=== PATIENT | female | born 1980 | race African-American/Black ===

== ENCOUNTER 2020-09-27 21:13 | Emergency (ER) | payer OTHER, SELFPAY ==
[2020-09-27 21:24] VITALS: BP 154/100; BP 164/84; PULSE 109; PULSE 114; RESP 18; TEMP 39.2; O2SAT 96; O2SAT 98; BMI 27.4
--- NOTE | 2020-09-27 21:37 | ECG_ITS ---
Test Reason : SOB/CP Blood Pressure : / mmHG Vent. Rate : 101 BPM Atrial Rate : 101 BPM P-R Int : 148 ms QRS Dur : 074 ms QT Int : 320 ms P-R-T Axes : 070 049 054 degrees QTc Int : 414 ms Sinus tachycardia Otherwise normal ECG No previous ECGs available Referred By: Marce Gamez Electronically Signed By:SAV MURO
--- NOTE | 2020-09-27 21:38 | XR_ITS ---
EXAMINATION: XR CHEST CLINICAL INFORMATION: Cough, shortness of breath. COMPARISON: None TECHNIQUE: Frontal view of the chest was obtained. FINDINGS: The lungs are clear. The cardiomediastinal silhouette is normal in size. There is no pleural effusion or pneumothorax. No acute osseous abnormality. XR/XR chest 1V IMPRESSION: No acute cardiopulmonary findings.
--- NOTE | 2020-09-27 21:40 | ED_ITS ---
HPI - URI/Sore Throat General Chief Complaint: Upper Respiratory Symptoms Stated Complaint: FLU SYMPTOMS Time Seen by Provider: 09/27/20 21:21 Source: patient Mode of arrival: ambulatory History of Present Illness HPI Narrative: 40-year-old female with a past medical history of Graves disease presenting to the ED complaining dry cough, worsening SOB, chest discomfort, chills, generalized fatigue/weakness, diarrhea, and nausea x a few days. Reports multiple COVID-19 exposures from family members. States mother was just discharged from the hospital with oxygen. Denies recent travel, LE edema, history of blood clots, abdominal pain, vomiting MD elicited complaint: fever and cough Related Data Previous Rx's Medication Instructions Recorded azithromycin See Rx Instructions .ROUTE 09/28/20 .COMPLEX #6 tab benzonatate [Tessalon Perles] 100 mg PO TID PRN #10 cap 09/28/20 Allergies Allergy/AdvReac Type Severity Reaction Status Date / Time iodine [IODINE] Allergy Unknown DIFFICULTY Verified 09/27/20 21:21 BREATHING Review of Systems Review of Systems: Constitutional: No Weight loss, + Fever, + Chills, + Fati elizabeth, + Malaise ENT/Mouth: No Nasal Congestion, No Sinus Pain, No Hoarseness, No sore throat, No Rhinorrhea Eyes: No Eye Pain, No Swelling, No Redness, No Foreign Body, No Discharge, No Vision Changes Cardiovascular: + Chest Pain, + SOB, No Dyspnea on Exertion, + Orthopnea, No Edema, No Palpitations Respiratory: + Cough, No Sputum, No Wheezing Gastrointestinal: + Nausea, No Vomiting, + Diarrhea, No Constipation, No Abdominal pain Genitourinary: No irregular bleeding, No Dysuria, No Urinary Frequency, No Hematuria Musculoskeletal: No joint pain, + Myalgias, No Joint Swelling Skin: No Skin Lesions, No rash Yes all other systems are reviewed and are negative [facility] Past Medical History Attestation statement: The following information was validated with the patient. Medical History (Updated 09/28/20 @ 00:06 by JUAN M Hercules) Graves disease Social History Social History Advance Directives: No Advance Directives Information Provided: No Physical Exam Vital Signs: Vital Signs: Last Vital Signs Temp 102.6 F H 09/27/20 21:24 Pulse 108 H 09/27/20 21:53 Resp 18 09/27/20 21:24 BP 154/100 H 09/27/20 21:24 Pulse Ox 96 09/27/20 21:24 Body Mass Index 27.4 Const: General: cooperative, alert, awake and anxious Orientation/consciousness: patient oriented x3 Limitations: no limitations HENMT: Head: Yes normal to inspection Ears: hearing grossly normal bilatera lly General nose exam: Normal external nose present Face and sinus: Yes normal facial exam Eyes: General: appearance normal, both eyes and all related structures EOM: EOMs intact bilaterally Neck: Neck: Yes normal visual inspection and Yes no meningeal signs Resp: Effort & Inspection: normal respiratory effort Auscultation: clear to auscultation bilaterally, no rales, no rhonchi and no wheezes Cardio: Rate: regular rate and tachycardic Heart sounds: S1 normal heart sound present and S2 normal heart sound present GI: Inspection: Yes normal to inspection Palpation (GI): Soft to palpation, nontender, no guarding and not rigid Skin: Rashes: no rashes Wounds: no wounds Neuro: General: patient oriented x3 and no meningeal signs Gait exam (Neuro): Normal gait present Extrem: Other: No LE edema General: Yes normal to inspection Course Course Course Narrative: * CRP mildly elevated, labs otherwise unremarkable, COVID-19 positive * CXR unremarkable > will ambulate with pulse ox * 0040--patient ambulated in the ED with pulse ox maintaining saturation greater than 98% on room air. Worrisome signs and symptoms and very strict return precautions discussed with patient. She verbalized understanding and feels safe for discharge home MDM - URI/Sore Throat MDM Narrative Medical decision making narrative: 40-year-old female with a past medical history of Graves disease presenting to the ED complaining dry cough, worsening SOB, chest discomfort, chills, generalized fatigue/weakness, diarrhea, and nausea x a few days. On exam hypertensive, febrile, tachycardic likely from fever, NAD, lungs CTA, abdomen soft/nontender. Concern for COVID-19/viral pneumonia. Lower concern for bacterial infection, ACS, or PE Plan: EKG, labs, CXR, COVID-19 testing, Albuterol, Tylenol, Reassess Low concern for severe sepsis as etiology likely viral Lab Data Result diagrams: 09/27/20 22:50 09/27/20 22:50 Labs: Lab Results 09/27/20 09/27/20 09/27/20 Range/Units 22:21 22:50 22:50 WBC 7.1 (4.8-10.8) X10*3/uL RBC 4.25 (4.20-5.50) X10*6/uL Hgb 12.8 (12.0-16.0) g/dl Hct 37.5 (37-47) % MCV 88.2 (80-98) fL MCH 30.1 (27.0-33.0) pg MCHC 34.1 (31.0-35.0) g/dl RDW 13.2 (11.0-16.0) % Plt Count 198 (160-400) X10*3/uL MPV 10.9 (9.4-12.3) fL Immature Gran % (Auto) 0.3 (0.0-0.4) % Neut % (Auto) 66.7 (45-73) % Lymph % (Auto) 22.1 (20-40) % Sevier % (Auto) 10.8 (2-11) % Eos % (Auto) 0.0 (0-4) % Baso % (Auto) 0.1 (0-2) % Lymph # (Auto) 1.6 (1.2-4.9) X10*3/uL Sevier # (Auto) 0.8 (0.1-1.2) X10*3/uL Eos # (Auto) 0.0 (0.0-0.4) X10*3/uL Baso # (Auto) 0.0 (0.0-0.2) X10*3/uL Abs Immat Gran (auto) 0.02 (0.00-0.03) X10*3/uL Absolute Neuts (auto) 4.7 (2.0-8.3) X10*3/uL Absolute Nucleated RBC 0.000 (0.0-0.012) X10*3/uL Nucleated RBC % (auto) 0.0 (0.0-0.2) /100WBC Hold Blue Top Sodium 136 (135-145) mmol/L Potassium 3.3 (3.3-5.1) mmol/l Chloride 104 (96-108) mmol/L Carbon Dioxide 20 L (22-29) mmol/L Anion Gap 15 (12-20) BUN 5 L (9-16) mg/dL Creatinine 0.75 (0.5-1.4) mg/dL Estim Creat Clear Calc 98.3 Estimated GFR > 60 Random Glucose 91 (60-115) mg/dL Calcium 8.4 (8.4-10.2) mg/dL Magnesium 1.8 (1.6-2.6) mg/dL Ferritin (10-122) ng/mL Total Bilirubin 0.4 (0.0-1.0) mg/dL Direct Bilirubin 0.2 (0.0-0.5) mg/dL AST 17 (5-31) U/L ALT 11 (0-31) U/L Alkaline Phosphatase 64 (39-117) U/L Lactate Dehydrogenase (122-220) U/L Troponin I High Sens (<3.5-17.0) ng/L C-Reactive Protein (< or = 0.50) mg/dL B-Natriuretic Peptide (<100) pg/mL Total Protein 8.0 (6.5-8.0) g/dL Albumin 4.3 (3.5-5.0) g/dL Lipase (8-78) U/L Procalcitonin ng/mL Coronavirus (PCR) POSITIVE A (Negative) Influenza Type A (PCR) NEGATIVE (Negative) Influenza Type B (PCR) NEGATIVE (Negative) RSV RNA Qual (PCR) NEGATIVE (Negative) 09/27/20 09/27/20 09/27/20 Range/Units 22:50 22:50 22:50 WBC (4.8-10.8) X10*3/uL RBC (4.20-5.50) X10*6/uL Hgb (12.0-16.0) g/dl Hct (37-47) % MCV (80-98) fL MCH (27.0-33.0) pg MCHC (31.0-35.0) g/dl RDW (11.0-16.0) % Plt Count (160-400) X10*3/uL MPV (9.4-12.3) fL Immature Gran % (Auto) (0.0-0.4) % Neut % (Auto) (45-73) % Lymph % (Auto) (20-40) % Sevier % (Auto) (2-11) % Eos % (Auto) (0-4) % Baso % (Auto) (0-2) % Lymph # (Auto) (1.2-4.9) X10*3/uL Sevier # (Auto) (0.1-1.2) X10*3/uL Eos # (Auto) (0.0-0.4) X10*3/uL Baso # (Auto) (0.0-0.2) X10*3/uL Abs Immat Gran (auto) (0.00-0.03) X10*3/uL Absolute Neuts (auto) (2.0-8.3) X10*3/uL Absolute Nucleated RBC (0.0-0.012) X10*3/uL Nucleated RBC % (auto) (0.0-0.2) /100WBC Hold Blue Top Sodium (135-145) mmol/L Potassium (3.3-5.1) mmol/l Chloride (96-108) mmol/L Carbon Dioxide (22-29) mmol/L Anion Gap (12-20) BUN (9-16) mg/dL Creatinine (0.5-1.4) mg/dL Estim Creat Clear Calc Estimated GFR Random Glucose (60-115) mg/dL Calcium (8.4-10.2) mg/dL Magnesium (1.6-2.6) mg/dL Ferritin 58 (10-122) ng/mL Total Bilirubin (0.0-1.0) mg/dL Direct Bilirubin (0.0-0.5) mg/dL AST (5-31) U/L ALT (0-31) U/L Alkaline Phosphatase (39-117) U/L Lactate Dehydrogenase 189 (122-220) U/L Troponin I High Sens 4.1 (<3.5-17.0) ng/L C-Reactive Protein 0.55 H (< or = 0.50) mg/dL B-Natriuretic Peptide < 10 (<100) pg/mL Total Protein (6.5-8.0) g/dL Albumin (3.5-5.0) g/dL Lipase (8-78) U/L Procalcitonin 0.06 ng/mL Coronavirus (PCR) (Negative) Influenza Type A (PCR) (Negative) Influenza Type B (PCR) (Negative) RSV RNA Qual (PCR) (Negative) 09/27/20 09/27/20 Range/Units 22:50 22:50 WBC (4.8-10.8) X10*3/uL RBC (4.20-5.50) X10*6/uL Hgb (12.0-16.0) g/dl Hct (37-47) % MCV (80-98) fL MCH (27.0-33.0) pg MCHC (31.0-35.0) g/dl RDW (11.0-16.0) % Plt Count (160-400) X10*3/uL MPV (9.4-12.3) fL Immature Gran % (Auto) (0.0-0.4) % Neut % (Auto) (45-73) % Lymph % (Auto) (20-40) % Sevier % (Auto) (2-11) % Eos % (Auto) (0-4) % Baso % (Auto) (0-2) % Lymph # (Auto) (1.2-4.9) X10*3/uL Sevier # (Auto) (0.1-1.2) X10*3/uL Eos # (Auto) (0.0-0.4) X10*3/uL Baso # (Auto) (0.0-0.2) X10*3/uL Abs Immat Gran (auto) (0.00-0.03) X10*3/uL Absolute Neuts (auto) (2.0-8.3) X10*3/uL Absolute Nucleated RBC (0.0-0.012) X10*3/uL Nucleated RBC % (auto) (0.0-0.2) /100WBC Hold Blue Top SEE NOTE Sodium (135-145) mmol/L Potassium (3.3-5.1) mmol/l Chloride (96-108) mmol/L Carbon Dioxide (22-29) mmol/L Anion Gap (12-20) BUN (9-16) mg/dL Creatinine (0.5-1.4) mg/dL Estim Creat Clear Calc Estimated GFR Random Glucose (60-115) mg/dL Calcium (8.4-10.2) mg/dL Magnesium (1.6-2.6) mg/dL Ferritin (10-122) ng/mL Total Bilirubin (0.0-1.0) mg/dL Direct Bilirubin (0.0-0.5) mg/dL AST (5-31) U/L ALT (0-31) U/L Alkaline Phosphatase (39-117) U/L Lactate Dehydrogenase (122-220) U/L Troponin I High Sens (<3.5-17.0) ng/L C-Reactive Protein (< or = 0.50) mg/dL B-Natriuretic Peptide (<100) pg/mL Total Protein (6.5-8.0) g/dL Albumin (3.5-5.0) g/dL Lipase 26 (8-78) U/L Procalcitonin ng/mL Coronavirus (PCR) (Negative) Influenza Type A (PCR) (Negative) Influenza Type B (PCR) (Negative) RSV RNA Qual (PCR) (Negative) Discharge Plan Discharge Clinical Impression: COVID-19 Patient Disposition: Home, Self-Care Instructions: COVID-19 (Coronavirus Disease 2019) (ED) Additional Instructions: YOU HAVE COVID-19 REST STAY HYDRATED TAKE TYLENOL AND MOTRIN AT HOME for body aches and fever MONITOR FEVER STAY SELF ISOLATED FOR 10-14 DAYS AZITHROMYCIN IS AN ANTIBOTIC, TAKE PRESCRIBED. IN ADDITIONAL TESSALON PEARLS ARE FOR COUGH, TAKE NEEDED IF YOU HAVE CONSTANT OR WORSENING CHEST PAIN, SHORTNESS OF BREATH, OR FEVER UNRESOLVED WITH MEDICATIONS RETURN TO THE ED CDC Guidelines for home isolation: - Stay away from others - WEAR A MASK if you are sick AND STAY HOME - Cover your mouth and nose with a tissue when you cough or sneeze. Dispose of tissues in a lined trash can and wash your hands immediately with soap and water for at least 20 seconds. If soap and water are not available, clean hands with alcohol-based hand extension specialist that contains at least 60% alcohol. - Clean your hands often with soap and water for at least 20 seconds - Avoid touching your eyes, nose and mouth with unwashed hands - Do not share dishes, drinking glasses, cups, eating utensils, towels, or bedding with other people in your home. After using these items, wash them thoroughly with soap and water or put in the gate mortiser operator. - Clean high-touch surfaces in your isolation area ( sick room and bathroom) every day; let a caregiver clean and disinfect high-touch surfaces in other areas of the home. Clean the area or item with soap and water or another detergent if it is dirty. Then, use a household disinfectant. - Limit contact with pets and animals: If you must care for a pet, wash your hands before and after interacting with them) Prescriptions: New azithromycin 250 mg tablet See Rx Instructions .ROUTE .COMPLEX Qty: 6 RF: 0 benzonatate [Tessalon Perles] 100 mg capsule 100 mg PO TID PRN (Reason: cough) Qty: 10 RF: 0 Referrals: Physician,Unknown [Primary Care Provider] - 2 days (call)
[2020-09-27] MEDS: Albuterol Sulfate 90 MCG 8 GM INHALER 4 PUFF INHALE (21:52)
[2020-09-27 21:53] VITALS: PULSE 108; O2SAT 99
[2020-09-27] MEDS: Acetaminophen 325 MG TABLET 650 MG PO (22:07)
[2020-09-27 22:57] LABS: Basophils Percent Auto 0.1 % (0-2); Hematocrit 37.5 % (37-47); Hemoglobin 12.8 g/dl (12.0-16.0); Imm Gran Abs Auto 0.02 X10*3/uL (0.00-0.03); Imm Gran Pct Auto 0.3 % (0.0-0.4); Lymphocytes Absolute Auto 1.6 X10*3/uL (1.2-4.9); Lymphocytes Percent Auto 22.1 % (20-40); MANUAL DIFF FLAG NO; Mean Corpuscular HGB Conc 34.1 g/dl (31.0-35.0); Mean Corpuscular Hemoglobin 30.1 pg (27.0-33.0); Mean Corpuscular Volume 88.2 fL (80-98); Mean Platelet Volume 10.9 fL (9.4-12.3); Monocytes Absolute Auto 0.8 X10*3/uL (0.1-1.2); Monocytes Percent Auto 10.8 % (2-11); Neutrophils Absolute Auto 4.7 X10*3/uL (2.0-8.3); Neutrophils Percent Auto 66.7 % (45-73); Platelet Count 198 X10*3/uL (160-400); Red Blood Count 4.25 X10*6/uL (4.20-5.50); Red Cell Distribution Width 13.2 % (11.0-16.0); White Blood Count 7.1 X10*3/uL (4.8-10.8)
[2020-09-27 23:08] LABS: Influenza A PCR NEGATIVE (Negative); Influenza B PCR NEGATIVE (Negative); Resp Syncy Virus RNA Qual PCR NEGATIVE (Negative)
[2020-09-27 23:20] LABS: SARS COV2 PCR INHOUSE POSITIVE (Negative)
[2020-09-27 23:25] LABS: C Reactive Protein 0.55 mg/dL (< or = 0.50); Lactate Dehydrogenase 189 U/L (122-220); Lipase 26 U/L (8-78)
[2020-09-27 23:26] LABS: Alanine Aminotransferase 11 U/L (0-31); Albumin Level 4.3 g/dL (3.5-5.0); Alkaline Phosphatase 64 U/L (39-117); Anion Gap 15 (12-20); Aspartate Amino Transferase 17 U/L (5-31); Bilirubin Direct 0.2 mg/dL (0.0-0.5); Bilirubin Total 0.4 mg/dL (0.0-1.0); Blood Urea Nitrogen 5 mg/dL (9-16); Calcium 8.4 mg/dL (8.4-10.2); Carbon Dioxide 20 mmol/L (22-29); Chloride 104 mmol/L (96-108); Creatinine Clr Calc Pharmacy 98.3; Estimated Glomerular Filt Rate > 60; Glucose Random 91 mg/dL (60-115); Magnesium 1.8 mg/dL (1.6-2.6); Potassium 3.3 mmol/l (3.3-5.1); Sodium 136 mmol/L (135-145)
[2020-09-27 23:28] LABS: B Type Natriuretic Peptide < 10 pg/mL (<100); Troponin-I High Sensitivity 4.1 ng/L (<3.5-17.0)
[2020-09-27 23:42] LABS: Procalcitonin 0.06 ng/mL
[2020-09-27 23:46] LABS: Ferritin 58 ng/mL (10-122)
[2020-09-28] MEDS: Ibuprofen 400 MG TABLET PO (00:37)
== END 2020-09-28 01:12 | disposition home or self-care (01) ==
PROVIDERS: Physician Assistant; Emergency Provider Emergency Medicine
DX: U07.1 COVID-19 (principal); E05.00 Thyrotoxicosis with diffuse goiter without thyrotoxic crisis or storm
CPT/HCPCS: 0241U; 36415; 71045; 80048; 80076; 82728; 83615; 83690; 83735; 83880; 84145; 84484; 85025; 86140; 93005; 94640; 99283; 99284

== ENCOUNTER 2022-12-21 15:00 | Emergency (ER) | payer OTHER, SELFPAY ==
--- NOTE | 2022-12-21 15:43 | ED_ITS ---
HPI - Abdominal Pain General Chief Complaint: Abdominal Pain <JUAN M Breen Last Filed: 12/21/22 15:48> Stated Complaint: Lower abd pain <JUAN M Breen Last Filed: 12/21/22 15:48> Time Seen by Provider: 12/21/22 16:15 <JUAN M Breen - Last Filed: 12/21/22 15:48> Source: patient and RN notes reviewed <Christiano Cardoso - Last Filed: 12/21/22 20:46> Mode of arrival: ambulatory <Christiano Cardoso - Last Filed: 12/21/22 20:46> Limitations: no limitations <Christiano Cardoso - Last Filed: 12/21/22 20:46> History of Present Illness HPI narrative: 42-year-old female presents for evaluation of lower abdominal cramping. She states her symptoms started about 1 week ago. She states it is mostly in the middle of her abdomen. She denies any abnormal vaginal bleeding or discharge. She is concern for a sexually transmitted infection and would like to be tested. She reports that she is currently on her menstrual cycle Denies any fevers or chills <Christiano Cardoso - Last Filed: 12/21/22 20:46> Related Data Home Medications: Previous Rx's Medication Instructions Recorded azithromycin 250 mg tablet See Rx Instructions PO .COMPLEX #6 09/28/20 tabs benzonatate 100 mg capsule 100 mg PO TID PRN cough #10 caps 09/28/20 (Reji Vincent) doxycycline hyclate 100 mg capsule 100 mg PO BID #20 caps 12/21/22 <JUAN M Breen Last Filed: 12/21/22 15:48> Allergies/Adverse Reactions: Allergies Allergy/AdvReac Type Severity Reaction Status Date / Time iodine [IODINE] Allergy Unknown DIFFICULTY Verified 09/27/20 21:21 BREATHING <JUAN M Breen Last Filed: 12/21/22 15:48> Review of Systems Constitutional: Reports as per HPI, Denies chills, Denies fatigue and Denies fever(s) <Christiano Cardoso - Last Filed: 12/21/22 20:46> Cardiovascular: Denies chest pain and Denies dyspnea <Christiano Cardoso - Last Filed: 12/21/22 20:46> Respiratory: Denies cough and Denies dyspnea <Christiano Cardoso - Last Filed: 12/21/22 20:46> Gastrointestinal: Reports abdominal pain, Denies constipation and Denies vomiting <Christiano Cardoso - Last Filed: 12/21/22 20:46> Genitourinary: Denies dysuria <Christiano Cardoso - Last Filed: 12/21/22 20:46> Denies focal weakness <Christiano Cardoso - Last Filed: 12/21/22 20:46> Endocrine: Denies fatigue <Christiano Cardoso - Last Filed: 12/21/22 20:46> PMFSH Past Medical History Medical History: Medical History (Updated 12/21/22 @ 18:17 by Christiano Cardoso) Graves disease <JUAN M Breen - Last Filed: 12/21/22 15:48> Social History Social History: Social History Advance Directives: No Advance Directives Information Provided: No <JUAN M Breen - Last Filed: 12/21/22 15:48> Physical Exam ED Vital Signs: Vital Signs - 24 hr 12/21/22 15:44 Temperature 98.0 F Pulse Rate 88 Respiratory Rate 18 Blood Pressure 126/93 H Pulse Oximetry 97 Oxygen Delivery Method Room Air BMI result Body Mass Index 29.9 <JUAN M Breen - Last Filed: 12/21/22 15:48> Vital Signs - 24 hr 12/21/22 15:44 Temperature 98.0 F Pulse Rate 88 Respiratory Rate 18 Blood Pressure 126/93 H Pulse Oximetry 97 Oxygen Delivery Method Room Air BMI result Body Mass Index 29.9 <Christiano Cardoso - Last Filed: 12/21/22 20:46> Const General: healthy appearing, comfortable, no acute distress, alert and awake <Christiano Cardoso - Last Filed: 12/21/22 20:46> Nutritional Appearance: well nourished <Christiano Cardoso - Last Filed: 12/21/22 20:46> Orientation/consciousness: patient oriented x3 <Christiano Cardoso - Last Filed: 12/21/22 20:46> HENMT Head: Yes normocephalic and Yes atraumatic < Last Filed: 12/21/22 20:46> Throat: Yes posterior oropharynx normal < Last Filed: 12/21/22 20:46> Eyes Eyelids: Yes eyelids normal < Last Filed: 12/21/22 20:46> Conjunctivae: conjunctivae normal < Last Filed: 12/21/22 20:46> Sclerae: sclerae normal < Last Filed: 12/21/22 20:46> Corneas: corneas normal < Last Filed: 12/21/22 20:46> Pupils: Equal, round and reactive pupils present < Last Filed: 12/21/22 20:46> EOM: EOMs intact bilaterally < Last Filed: 12/21/22 20:46> Neck Neck: Yes full ROM < Last Filed: 12/21/22 20:46> Resp Effort & Inspection: normal respiratory effort, able to speak in complete sentences, no audible wheezes and not labored < Last Filed: 12/21/22 20:46> Auscultation: clear to auscultation bilaterally < Last Filed: 12/21/22 20:46> Cardio Rate: regular rate < Last Filed: 12/21/22 20:46> Rhythm: regular rhythm < Last Filed: 12/21/22 20:46> GI Inspection: No distended < Last Filed: 12/21/22 20:46> Palpation (GI): Soft to palpation, not firm, nontender, no guarding and not rigid < Last Filed: 12/21/22 20:46> Auscultation: normoactive bowel sounds < Last Filed: 12/21/22 20:46> Skin General skin exam: no rashes or lesions noted and elasticity normal < - Last Filed: 12/21/22 20:46> Neuro General: patient oriented x3 <Christiano Cardoso - Last Filed: 12/21/22 20:46> Cranial nerves: Yes CN's II-XII intact bilaterally, Yes Equal, round and reactive pupils present and Yes Bilaterally intact EOM present <Christiano Cardoso - Last Filed: 12/21/22 20:46> Cognition (Neuro): normal cognition <Christiano Cardoso - Last Filed: 12/21/22 20:46> Extrem Other: Moving all extremities well without any obvious deformities <Christiano Buenrostroy - Last Filed: 12/21/22 20:46> Course Course Course Narrative: RME-15:43PM - 42yoF with a PMHx of Graves disease who is presenting to the ED with c/o right-sided abdominal pain/cramping for the proximally 1 week. Currently on her menstrual period. Denies any fevers, nausea vomiting or diarrhea, abnormal discharge, hematuria dysuria or any other symptoms complaints or concerns at thi s time. Plan: Will obtain labs, UA, gonorrhea chlamydia urine, patient to be seen in the ED for further evaluation treatment. Patient reports she does not feel like she needs any imaging therefore ultrasounds were canceled. She just wants to make sure she does not have an STD she reports. <JUAN M Breen - Last Filed: 12/21/22 15:48> Reevaluation(s) Reevaluation #1: Patient's labs without significant abnormality, there was blood in the and the patient reports being on her menstrual cycle. She will follow-up with PCP. Again she was informed that her gonorrhea, chlamydia and RPR testing is a send out and will not result today. Will call her if there are any positive results <Christiano Cardoso - Last Filed: 12/21/22 20:46> Time: 18:15 <Christiano Cardoso - Last Filed: 12/21/22 20:46> Medical Decision Making Medical Decision Making MDM Narrative: 42-year-old female who denies any past medical history presents for evaluation of lower abdominal/pelvic cramping. She declined imaging. Seems she is most concerned about STI testing. Gonorrhea, chlamydia and syphilis testing was ordered. The patient would like to be treated empirically which was ordered. The patient's abdominal exam is reassuring, she has no tenderness or guarding <Christiano Cardoso - Last Filed: 12/21/22 20:46> Differential Diagnosis Gonorrhea Chlamydia Abdominal pain Ovarian cyst Uterine fibroids Acute appendicitis less likely <Christiano Cardoso - Last Filed: 12/21/22 20:46> Lab Data Result Diagrams: 12/21/22 16:38 12/21/22 16:38 <JUAN M Breen - Last Filed: 12/21/22 15:48> Labs: Lab Results 12/21/22 12/21/22 12/21/22 Range/Units 16:38 16:38 16:38 WBC 10.7 (4.8-10.8) X10*3/uL RBC 4.22 (4.20-5.50) X10*6/uL Hgb 12.1 (12.0-16.0) g/dl Hct 36.3 L (37.0-47.0) % MCV 86.0 (80.0-98.0) fL MCH 28.7 (27.0-33.0) pg MCHC 33.3 (31.0-35.0) g/dl RDW 14.1 (11.0-16.0) % Plt Count 369 (160-400) X10*3/uL MPV 9.8 (9.4-12.3) fL Immature Gran % (Auto) 0.4 (0.0-0.4) % Neut % (Auto) 63.5 (45-73) % Lymph % (Auto) 25.7 (20-40) % [place] % (Auto) 8.6 (2-11) % Eos % (Auto) 1.2 (0-4) % Baso % (Auto) 0.6 (0-2) % Lymph # (Auto) 2.8 (1.2-4.9) X10*3/uL [place] # (Auto) 0.9 (0.1-1.2) X10*3/uL Eos # (Auto) 0.1 (0.0-0.4) X10*3/uL Baso # (Auto) 0.1 (0.0-0.2) X10*3/uL Abs Immat Gran (auto) 0.04 H (0.00-0.03) X10*3/uL Absolute Neuts (auto) 6.8 (2.0-8.3) x10*3/uL Absolute Nucleated RBC 0.000 (0.0-0.012) X10*3/uL Nucleated RBC % (auto) 0.0 (0.0-0.2) /100WBC Sodium 140 (135-145) mmol/L Potassium 3.9 (3.3-5.1) mmol/L Chloride 109 H (96-108) mmol/L Carbon Dioxide 22 (22-29) mmol/L Anion Gap 13 (12-20) BUN 12 (9-16) mg/dL Creatinine 0.86 (0.5-1.4) mg/dL Estim Creat Clear Calc 90.8 Estimated GFR > 60 Random Glucose 112 (60-115) mg/dL Calcium 9.0 D (8.4-10.2) mg/dL Total Bilirubin 1.1 H (0.0-1.0) mg/dL AST 16 (5-31) U/L ALT 10 (0-31) U/L Alkaline Phosphatase 86 (39-117) U/L Total Protein 8.0 (6.5-8.0) g/dL Albumin 4.0 (3.5-5.0) g/dL Beta HCG, Quant < 2 mIU/mL Urine Color Dark Yellow Urine Appearance Clear Urine pH 5.5 (5.0-9.0) Ur Specific [place] >= 1.030 H (1.005-1.025) Urine Protein 30 (1+) H (Neg-Trace) mg/dL Urine Glucose (UA) Negative (Negative) mg/dL Urine Ketones Trace (Negative) mg/dL Urine Blood Large (3+) H (Negative) Urine Nitrite Negative (Negative) Ur Leukocyte Esterase Negative (Negative) Urine RBC 11-20 H (0-2) /HPF Urine WBC 0-5 (0-5) /HPF Ur Squamous Epith Cells 0-2 (0-2) /HPF Urine Bacteria None Seen (None Seen) Hyaline Casts 0-2 (0-2) /LPF <JUAN M Breen - Last Filed: 12/21/22 15:48> Lab Results 12/21/22 12/21/22 12/21/22 Range/Units 16:38 16:38 16:38 WBC 10.7 (4.8-10.8) X10*3/uL RBC 4.22 (4.20-5.50) X10*6/uL Hgb 12.1 (12.0-16.0) g/dl Hct 36.3 L (37.0-47.0) % MCV 86.0 (80.0-98.0) fL MCH 28.7 (27.0-33.0) pg MCHC 33.3 (31.0-35.0) g/dl RDW 14.1 (11.0-16.0) % Plt Count 369 (160-400) X10*3/uL MPV 9.8 (9.4-12.3) fL Immature Gran % (Auto) 0.4 (0.0-0.4) % Neut % (Auto) 63.5 (45-73) % Lymph % (Auto) 25.7 (20-40) % [place] % (Auto) 8.6 (2-11) % Eos % (Auto) 1.2 (0-4) % Baso % (Auto) 0.6 (0-2) % Lymph # (Auto) 2.8 (1.2-4.9) X10*3/uL [place] # (Auto) 0.9 (0.1-1.2) X10*3/uL Eos # (Auto) 0.1 (0.0-0.4) X10*3/uL Baso # (Auto) 0.1 (0.0-0.2) X10*3/uL Abs Immat Gran (auto) 0.04 H (0.00-0.03) X10*3/uL Absolute Neuts (auto) 6.8 (2.0-8.3) x10*3/uL Absolute Nucleated RBC 0.000 (0.0-0.012) X10*3/uL Nucleated RBC % (auto) 0.0 (0.0-0.2) /100WBC Sodium 140 (135-145) mmol/L Potassium 3.9 (3.3-5.1) mmol/L Chloride 109 H (96-108) mmol/L Carbon Dioxide 22 (22-29) mmol/L Anion Gap 13 (12-20) BUN 12 (9-16) mg/dL Creatinine 0.86 (0.5-1.4) mg/dL Estim Creat Clear Calc 90.8 Estimated GFR > 60 Random Glucose 112 (60-115) mg/dL Calcium 9.0 D (8.4-10.2) mg/dL Total Bilirubin 1.1 H (0.0-1.0) mg/dL AST 16 (5-31) U/L ALT 10 (0-31) U/L Alkaline Phosphatase 86 (39-117) U/L Total Protein 8.0 (6.5-8.0) g/dL Albumin 4.0 (3.5-5.0) g/dL Beta HCG, Quant < 2 mIU/mL Urine Color Dark Yellow Urine Appearance Clear Urine pH 5.5 (5.0-9.0) Ur Specific [place] >= 1.030 H (1.005-1.025) Urine Protein 30 (1+) H (Neg-Trace) mg/dL Urine Glucose (UA) Negative (Negative) mg/dL Urine Ketones Trace (Negative) mg/dL Urine Blood Large (3+) H (Negative) Urine Nitrite Negative (Negative) Ur Leukocyte Esterase Negative (Negative) Urine RBC 11-20 H (0-2) /HPF Urine WBC 0-5 (0-5) /HPF Ur Squamous Epith Cells 0-2 (0-2) /HPF Urine Bacteria None Seen (None Seen) Hyaline Casts 0-2 (0-2) /LPF <Christiano Cardoso - Last Filed: 12/21/22 20:46> Medications Administered Discontinued Medications Generic Name Dose Route Start Last Admin Trade Name [place] PRN Reason Stop Dose Admin Ceftriaxone Sodium 500 mg 12/21/22 16:29 12/21/22 17:11 Ceftriaxone Sodium 500 Mg Vial IM 12/21/22 16:30 500 mg ONCE ONE Administration Doxycycline Monohydrate 100 mg 12/21/22 16:28 12/21/22 17:11 Doxycycline Monohydrate 100 Mg Capsule PO 12/21/22 16:29 100 mg ONCE ONE Administration Lidocaine HCl 2 ml 12/21/22 16:29 12/21/22 17:11 Lidocaine Hcl 1 % Mpf 2 Ml Vial INFILTRATI 12/21/22 16:30 2 ml ONCE ONE Administration <JUAN M Breen - Last Filed: 12/21/22 15:48> Medications Administered Discontinued Medications Generic Name Dose Route Start Last Admin Trade Name Freq PRN Reason Stop Dose Admin Ceftriaxone Sodium 500 mg 12/21/22 16:29 12/21/22 17:11 Ceftriaxone Sodium 500 Mg Vial IM 12/21/22 16:30 500 mg ONCE ONE Administration Doxycycline Monohydrate 100 mg 12/21/22 16:28 12/21/22 17:11 Doxycycline Monohydrate 100 Mg Capsule PO 12/21/22 16:29 100 mg ONCE ONE Administration Lidocaine HCl 2 ml 12/21/22 16:29 12/21/22 17:11 Lidocaine Hcl 1 % Mpf 2 Ml Vial INFILTRATI 12/21/22 16:30 2 ml ONCE ONE Administration <Christiano Cardoso - Last Filed: 12/21/22 20:46> Discharge Plan Discharge Clinical Impression: Abdominal pain <JUAN M Breen - Last Filed: 12/21/22 15:48> Patient Disposition: Home, Self-Care <JUAN M Breen - Last Filed: 12/21/22 15:48> Instructions: Abdominal Pain (ED) <JUAN M Breen - Last Filed: 12/21/22 15:48> Additional Instructions: Your blood work and urine sample reassuring today. You were tested for gonorrhea, chlamydia and syphilis. These results will come back in 1-2 days and will call you if they are positive. Take doxycycline twice daily for 10 days You were given a medication called ceftriaxone and together they treat both gonorrhea and chlamydia <JUAN M Breen - Last Filed: 12/21/22 15:48> Prescriptions: New doxycycline hyclate 100 mg capsule 100 mg PO BID Qty: 20 0RF No Action azithromycin 250 mg tablet See Rx Instructions .ROUTE .COMPLEX Qty: 6 0RF Rx Instructions: take 500 mg today (day 1), then 250 mg for 4 days (days 2-5) benzonatate [Tessalon Perles] 100 mg capsule 100 mg PO TID PRN (Reason: cough) Qty: 10 0RF <JUAN M Breen - Last Filed: 12/21/22 15:48> Interventions: ED Discharge Assessment Last Done: 12/21/22 18:39 <JUAN M Breen - Last Filed: 12/21/22 15:48> Discharge Date/Time: 12/21/22 18:40 <JUAN M Breen - Last Filed: 12/21/22 15:48>
[2022-12-21 15:44] VITALS: BP 126/93; PULSE 88; RESP 18; TEMP 36.7; O2SAT 97; BMI 29.9
[2022-12-21 16:47] LABS: MANUAL DIFF FLAG NO
[2022-12-21 16:48] LABS: Basophils Absolute Auto 0.1 X10*3/uL (0.0-0.2); Basophils Percent Auto 0.6 % (0-2); Eosinophils Absolute Auto 0.1 X10*3/uL (0.0-0.4); Eosinophils Percent Auto 1.2 % (0-4); Hematocrit 36.3 % (37.0-47.0); Hemoglobin 12.1 g/dl (12.0-16.0); Imm Gran Abs Auto 0.04 X10*3/uL (0.00-0.03); Imm Gran Pct Auto 0.4 % (0.0-0.4); Lymphocytes Absolute Auto 2.8 X10*3/uL (1.2-4.9); Lymphocytes Percent Auto 25.7 % (20-40); Mean Corpuscular HGB Conc 33.3 g/dl (31.0-35.0); Mean Corpuscular Hemoglobin 28.7 pg (27.0-33.0); Mean Platelet Volume 9.8 fL (9.4-12.3); Monocytes Absolute Auto 0.9 X10*3/uL (0.1-1.2); Monocytes Percent Auto 8.6 % (2-11); Neutrophils Absolute Auto 6.8 x10*3/uL (2.0-8.3); Neutrophils Percent Auto 63.5 % (45-73); Platelet Count 369 X10*3/uL (160-400); Red Blood Count 4.22 X10*6/uL (4.20-5.50); Red Cell Distribution Width 14.1 % (11.0-16.0); White Blood Count 10.7 X10*3/uL (4.8-10.8)
[2022-12-21 17:00] LABS: Appearance Urine Clear; Color Urine Dark Yellow; Glucose Urine UA Negative (Negative); Leukocyte Esterase Urine Negative (Negative); Nitrite Urine Negative (Negative); PH 5.5 (5.0-9.0); UMIC TRIGGER UACC YES; Urine Blood Large (3+) (Negative); Urine Ketones Trace mg/dL (Negative); Urine Protein 30 (1+) mg/dL (Neg-Trace)
[2022-12-21] MEDS: cefTRIAXone sodium 500 MG VIAL IM (17:11)
[2022-12-21] MEDS: Lidocaine HCl 1 % MPF 2 ML VIAL INFILTRATI (17:11)
[2022-12-21] MEDS: Doxycycline Monohydrate 100 MG CAPSULE PO (17:11)
[2022-12-21 17:13] LABS: Alanine Aminotransferase 10 U/L (0-31); Alkaline Phosphatase 86 U/L (39-117); Anion Gap 13 (12-20); Aspartate Amino Transferase 16 U/L (5-31); Bilirubin Total 1.1 mg/dL (0.0-1.0); Blood Urea Nitrogen 12 mg/dL (9-16); Carbon Dioxide 22 mmol/L (22-29); Chloride 109 mmol/L (96-108); Creatinine Clr Calc Pharmacy 90.8; Estimated Glomerular Filt Rate > 60; Glucose Random 112 mg/dL (60-115); HCG Quantitative < 2 mIU/mL; Potassium 3.9 mmol/L (3.3-5.1); Sodium 140 mmol/L (135-145)
[2022-12-21 18:12] LABS: Bacteria Urine None Seen (None Seen); Hyaline Casts Urine 0-2 /LPF (0-2); Squamous Epithelial Cell Urine 0-2 /HPF (0-2); WBC Urine 0-5 /HPF (0-5)
[2022-12-21 18:13] LABS: Specific Gravity - Urine >= 1.030 (1.005-1.025)
[2022-12-22 04:24] LABS: Syphilis Screen Nonreactive (Nonreactive)
[2022-12-22 05:47] LABS: CT PCR NOT DETECTED (Not Detect.); NG PCR NOT DETECTED (Not Detect.)
== END 2022-12-21 18:40 | disposition home or self-care (01) ==
PROVIDERS: Physician Assistant Medical; Emergency Provider Emergency Medicine Emergency Medical Services
DX: R10.9 Unspecified abdominal pain (principal); Z20.2 Contact with and (suspected) exposure to infections with a predominantly sexual mode of transmission
CPT/HCPCS: 0353U; 36415; 80053; 81001; 81003; 84702; 85025; 86780; 96372; 99282; 99284; J0696

== ENCOUNTER 2023-01-07 02:14 | Emergency (ER) | payer OTHER, SELFPAY ==
--- NOTE | 2023-01-07 02:18 | ECG_ITS ---
Test Reason : JAMES Blood Pressure : / mmHG Vent. Rate : 090 BPM Atrial Rate : 090 BPM P-R Int : 150 ms QRS Dur : 074 ms QT Int : 354 ms P-R-T Axes : 049 033 037 degrees QTc Int : 433 ms Normal sinus rhythm Minimal voltage criteria for LVH, may be normal variant ( Sokolow-Marc ) Borderline ECG When compared with ECG of 27-SEP-2020 21:44, No significant change was found Referred By: Generic ED Physician Electronically Signed By:ANGELA DALTON MD
[2023-01-07 02:25] VITALS: BP 140/73; PULSE 99; RESP 16; TEMP 36.7; O2SAT 98; BMI 27.4
[2023-01-07 02:35] VITALS: BP 132/95; BP 140/83; BP 147/84; PULSE 105; PULSE 96; PULSE 97
[2023-01-07 02:48] LABS: Basophils Percent Auto 0.4 % (0-2); Eosinophils Absolute Auto 0.1 X10*3/uL (0.0-0.4); Eosinophils Percent Auto 0.9 % (0-4); Hematocrit 37.8 % (37.0-47.0); Hemoglobin 12.7 g/dl (12.0-16.0); Imm Gran Abs Auto 0.02 X10*3/uL (0.00-0.03); Imm Gran Pct Auto 0.2 % (0.0-0.4); MANUAL DIFF FLAG NO; Mean Corpuscular HGB Conc 33.6 g/dl (31.0-35.0); Mean Corpuscular Hemoglobin 28.2 pg (27.0-33.0); Mean Corpuscular Volume 83.8 fL (80.0-98.0); Mean Platelet Volume 10.3 fL (9.4-12.3); Monocytes Absolute Auto 1.1 X10*3/uL (0.1-1.2); Monocytes Percent Auto 10.8 % (2-11); Neutrophils Absolute Auto 6.3 x10*3/uL (2.0-8.3); Neutrophils Percent Auto 59.7 % (45-73); Platelet Count 290 X10*3/uL (160-400); Red Blood Count 4.51 X10*6/uL (4.20-5.50); Red Cell Distribution Width 14.1 % (11.0-16.0); White Blood Count 10.5 X10*3/uL (4.8-10.8)
--- NOTE | 2023-01-07 02:48 | ED.CHESTPAIN ---
HPI - Chest Pain General Chief Complaint: Chest Pain Stated Complaint: chest pains Time Seen by Provider: 01/07/23 02:48 Source: patient Mode of arrival: ambulatory Limitations: no limitations History of Present Illness HPI narrative: .patientwith History of Graves disease not taking any medications increased anxiety and panic attacks been having left-sided chest pain for off and on for last 3 days pain comes and goes lasting for few seconds. Patient's son was diagnosed with pancreatitis and fell history of stomach cancer patient is very anxious and worried about it Related Data Previous Rx's Medication Instructions Recorded azithromycin 250 mg tablet See Rx Instructions PO .COMPLEX #6 09/28/20 tabs benzonatate 100 mg capsule 100 mg PO TID PRN cough #10 caps 09/28/20 (Tessalon Perles) doxycycline hyclate 100 mg capsule 100 mg PO BID #20 caps 12/21/22 lorazepam 0.5 mg tablet (Ativan) 0.5 mg PO BEDTIME PRN anxiety/ 01/07/23 sleep #14 tabs Allergies Allergy/AdvReac Type Severity Reaction Status Date / Time iodine [IODINE] Allergy Unknown DIFFICULTY Verified 09/27/20 21:21 BREATHING Review of Systems Review of Systems: Yes all other systems are reviewed and are negative PMFSH Past Medical History Medical History Graves disease Social History Social History Advance Directives: No Advance Directives Information Provided: Yes Physical Exam Vital Signs: Vital Signs: Last Vital Signs Temp 97.6 F 01/07/23 04:50 Pulse 82 01/07/23 04:50 Resp 14 01/07/23 04:50 BP 126/84 01/07/23 04:50 Pulse Ox 98 01/07/23 04:50 O2 Del Method Room Air 01/07/23 04:50 BMI result Body Mass Index 27.4 Appearance: Alert. Oriented X3. No acute distress. Anxious Eyes: No pallor or icterus ENT: Pharynx normal. Oral Mucosa moist Neck: Normal inspection. Neck supple. CVS: Normal heart rate and rhythm. Pulses normal. Respiratory: No respiratory distress. Equal air entry bilateral, no wheezing/rales/rhonchi Abdomen: Soft and nontender. Bowel sounds are present, no mass palpable, no CVA tenderness Skin: Skin warm and dry. Normal skin color. Normal skin turgor. Extremities: No lower extremity edema. No calf tenderness Neuro: Oriented X 3. No motor deficit. No sensory deficit.No cerebellar signs , cranial nerves II-XII intact Medical Decision Making Medical Decision Making [facility] Narrative: Patient with atypical chest pain with anxiety 2 sets of cardiac enzymes negative EKG without any ischemic changes discharge patient home advised to follow with PCP Lab Data [facility] Lab Attestation statement: I reviewed the patient's lab results. 01/07/23 02:42 01/07/23 02:42 Labs: Lab Results 01/07/23 01/07/23 01/07/23 Range/Units 02:42 02:42 02:42 WBC 10.5 (4.8-10.8) X10*3/uL RBC 4.51 (4.20-5.50) X10*6/uL Hgb 12.7 (12.0-16.0) g/dl Hct 37.8 (37.0-47.0) % MCV 83.8 (80.0-98.0) fL MCH 28.2 (27.0-33.0) pg MCHC 33.6 (31.0-35.0) g/dl RDW 14.1 (11.0-16.0) % Plt Count 290 (160-400) X10*3/uL MPV 10.3 (9.4-12.3) fL Immature Gran % (Auto) 0.2 (0.0-0.4) % Neut % (Auto) 59.7 (45-73) % Lymph % (Auto) 28.0 (20-40) % [place] % (Auto) 10.8 (2-11) % Eos % (Auto) 0.9 (0-4) % Baso % (Auto) 0.4 (0-2) % Lymph # (Auto) 3.0 (1.2-4.9) X10*3/uL [place] # (Auto) 1.1 (0.1-1.2) X10*3/uL Eos # (Auto) 0.1 (0.0-0.4) X10*3/uL Baso # (Auto) 0.0 (0.0-0.2) X10*3/uL Abs Immat Gran (auto) 0.02 (0.00-0.03) X10*3/uL Absolute Neuts (auto) 6.3 (2.0-8.3) x10*3/uL Absolute Nucleated RBC 0.000 (0.0-0.012) X10*3/uL Nucleated RBC % (auto) 0.0 (0.0-0.2) /100WBC Sodium 141 (135-145) mmol/L Potassium 3.9 (3.3-5.1) mmol/L Chloride 107 (96-108) mmol/L Carbon Dioxide 21 L (22-29) mmol/L Anion Gap 17 (12-20) BUN 13 (9-16) mg/dL Creatinine 0.94 (0.5-1.4) mg/dL Estim Creat Clear Calc 82.5 Estimated GFR > 60 Random Glucose 89 (60-115) mg/dL Calcium 8.9 (8.4-10.2) mg/dL Troponin I High Sens 13.1 (<3.5-17.0) ng/L TSH 1.47 (0.32-4.0) uIU/mL Free T4 1.82 (0.71-1.85) ng/dL 01/07/23 Range/Units 04:46 WBC (4.8-10.8) X10*3/uL RBC (4.20-5.50) X10*6/uL Hgb (12.0-16.0) g/dl Hct (37.0-47.0) % MCV (80.0-98.0) fL MCH (27.0-33.0) pg MCHC (31.0-35.0) g/dl RDW (11.0-16.0) % Plt Count (160-400) X10*3/uL MPV (9.4-12.3) fL Immature Gran % (Auto) (0.0-0.4) % Neut % (Auto) (45-73) % Lymph % (Auto) (20-40) % [place] % (Auto) (2-11) % Eos % (Auto) (0-4) % Baso % (Auto) (0-2) % Lymph # (Auto) (1.2-4.9) X10*3/uL [place] # (Auto) (0.1-1.2) X10*3/uL Eos # (Auto) (0.0-0.4) X10*3/uL Baso # (Auto) (0.0-0.2) X10*3/uL Abs Immat Gran (auto) (0.00-0.03) X10*3/uL Absolute Neuts (auto) (2.0-8.3) x10*3/uL Absolute Nucleated RBC (0.0-0.012) X10*3/uL Nucleated RBC % (auto) (0.0-0.2) /100WBC Sodium (135-145) mmol/L Potassium (3.3-5.1) mmol/L Chloride (96-108) mmol/L Carbon Dioxide (22-29) mmol/L Anion Gap (12-20) BUN (9-16) mg/dL Creatinine (0.5-1.4) mg/dL Estim Creat Clear Calc Estimated GFR Random Glucose (60-115) mg/dL Calcium (8.4-10.2) mg/dL Troponin I High Sens 10.3 (<3.5-17.0) ng/L TSH (0.32-4.0) uIU/mL Free T4 (0.71-1.85) ng/dL Discharge Plan Discharge Clinical Impression: Atypical chest pain, Anxiety Patient Disposition: Home, Self-Care Instructions: Chest Pain (ED), Anxiety (ED) Additional Instructions: Your chest pain is atypical follow-up with PCP for further evaluation Medication for anxiety as prescribed Prescriptions: New lorazepam [Ativan] 0.5 mg tablet 0.5 mg PO BEDTIME PRN (Reason: anxiety/ sleep) Qty: 14 0RF No Action azithromycin 250 mg tablet See Rx Instructions .ROUTE .COMPLEX Qty: 6 0RF Rx Instructions: take 500 mg today (day 1), then 250 mg for 4 days (days 2-5) benzonatate [Tessalon Perles] 100 mg capsule 100 mg PO TID PRN (Reason: cough) Qty: 10 0RF doxycycline hyclate 100 mg capsule 100 mg PO BID Qty: 20 0RF
[2023-01-07 03:11] LABS: Anion Gap 17 (12-20); Blood Urea Nitrogen 13 mg/dL (9-16); Calcium 8.9 mg/dL (8.4-10.2); Carbon Dioxide 21 mmol/L (22-29); Chloride 107 mmol/L (96-108); Creatinine Clr Calc Pharmacy 82.5; Estimated Glomerular Filt Rate > 60; Glucose Random 89 mg/dL (60-115); Potassium 3.9 mmol/L (3.3-5.1); Sodium 141 mmol/L (135-145)
[2023-01-07 03:12] LABS: Troponin-I High Sensitivity 13.1 ng/L (<3.5-17.0)
[2023-01-07 03:31] LABS: Free T4 (Free Thyroxine) 1.82 ng/dL (0.71-1.85); Thyroid Stimulating Hormone 1.47 uIU/mL (0.32-4.0)
[2023-01-07 04:50] VITALS: BP 126/84; PULSE 82; RESP 14; TEMP 36.4; O2SAT 98
[2023-01-07 05:16] LABS: Troponin-I High Sensitivity 10.3 ng/L (<3.5-17.0)
[2023-01-07 05:39] VITALS: PULSE 72
== END 2023-01-07 05:39 | disposition home or self-care (01) ==
PROVIDERS: Emergency Provider Internal Medicine; PCP Internal Medicine
DX: R07.89 Other chest pain (principal); F41.9 Anxiety disorder, unspecified; E05.00 Thyrotoxicosis with diffuse goiter without thyrotoxic crisis or storm; Z72.89 Other problems related to lifestyle; Z63.79 Other stressful life events affecting family and household
CPT/HCPCS: 36415; 80048; 84439; 84443; 84484; 85025; 93005; 99284; 99285

== ENCOUNTER 2024-01-19 10:42 | Emergency (ER) | payer OTHER, SELFPAY ==
--- NOTE | ~2024-01-19 | XR_ITS ---
EXAMINATION: XR CHEST CLINICAL INFORMATION: Cold and flulike symptoms. COMPARISON: Chest radiograph dated 09/27/2020. TECHNIQUE: Frontal view of the chest was obtained. FINDINGS: The cardiomediastinal silhouette is normal in appearance. The lungs are clear. There is no pleural effusion or pneumothorax. No acute osseous abnormality. XR/XR chest 1V IMPRESSION: Stable appearance of the heart and lungs. No active disease.
--- NOTE | 2024-01-19 10:43 | ECG_ITS ---
Test Reason : NAUSEA, VOMIT Blood Pressure : / mmHG Vent. Rate : 101 BPM Atrial Rate : 101 BPM P-R Int : 154 ms QRS Dur : 076 ms QT Int : 332 ms P-R-T Axes : 055 041 050 degrees QTc Int : 430 ms Sinus tachycardia Minimal voltage criteria for LVH, may be normal variant ( Sokolow-Marc ) Borderline ECG When compared with ECG of 07-JAN-2023 02:22, No significant change was found Referred By: Generic ED Physician Electronically Signed By:ANGELA DALTON MD
[2024-01-19 10:56] VITALS: BP 199/100; PULSE 100; O2SAT 100
[2024-01-19 11:02] VITALS: BP 156/82; PULSE 104; RESP 19; TEMP 37.3; O2SAT 100; BMI 33.6
--- NOTE | 2024-01-19 11:42 | ED_ITS ---
HPI - General Adult General Chief complaint: General Medical Stated complaint: N/V/D CHILLS/BODY ACHES Time Seen by Provider: 01/19/24 11:31 Source: patient and EMS Mode of arrival: EMS Limitations: no limitations History of Present Illness HPI narrative: 43-year-old female came in for evaluation of generalized body ache, runny nose, congestion, nausea, vomiting, diarrhea, chills, sore throat, and chest pain. No sick contacts, no exposure to bad food, no recent travel, son came from field trip but he has not sick. Known to have thyroid disease. Related Data Previous Rx's ?Medication ?Instructions ?Recorded azithromycin 250 mg tablet See Rx Instructions PO .COMPLEX #6 09/28/20 tabs benzonatate 100 mg capsule 100 mg PO TID PRN cough #10 caps 09/28/20 (Tessalon Perles) doxycycline hyclate 100 mg capsule 100 mg PO BID #20 caps 12/21/22 lorazepam 0.5 mg tablet (Ativan) 0.5 mg PO BEDTIME PRN anxiety/ 01/07/23 sleep #14 tabs albuterol sulfate 90 mcg/actuation 2 puff inhalation Q6H PRN 01/19/24 aerosol inhaler shortness of breath or wheezing #8.5 grams Allergies Allergy/AdvReac Type Severity Reaction Status Date / Time iodine [IODINE] Allergy Unknown DIFFICULTY Verified 01/19/24 11:03 BREATHING Review of Systems 2 Review of Systems: All other systems are reviewed and are negative Constitutional: Reports as per HPI and Reports no additional constitutional complaints Eyes: Reports as per HPI and Reports no additional eye complaints Reports system reviewed and no additional complaints, except as documented Cardiovascular: Reports as per HPI and Reports no additional cardiovascular complaints Respiratory: Reports as per HPI and Reports no additional respiratory complaints Gastrointestinal: Reports as per HPI and Reports no additional gastrointestinal complaints Genitourinary: Reports no additional female genitourinary complaints Musculoskeletal: Reports no additional musculoskeletal complaints Skin/Breast: Reports system reviewed and no additional complaints, except as docu Psychiatric: Reports no additional psychiatric complaints Endocrine: Reports no additional endocrine complaints Hematologic/Lymphatic: Reports no additional hematologic/lymphatic complaints Allergic/Immunologic: Reports no additional allergic/immunologic complaints Reports system reviewed and no additional complaints, except as documented and Reports Abnormal speech present [facility] Past Medical History Medical History Graves disease Social History Social History Smoked in Last 30 Days: No Use of substances other than those prescribed or required for medical reasons: No Advance Directives: No Advance Directives Information Provided: No Patient : No Physical Exam ED Vital Signs: Vital Signs - 24 hr 01/19/24 11:02 01/19/24 12:39 Temperature 99.1 F Pulse Rate 104 H 102 H Respiratory Rate 19 17 Blood Pressure 156/82 H 140/78 H Pulse Oximetry 100 96 Oxygen Delivery Method Room Air Room Air BMI result Body Mass Index 33.6 Vital signs have been reviewed and appear to be correct. Blood pressure elevated. Heart rate elevated. Respiratory rate normal. Low-grade fever. Oxygen saturation normal. Appearance: Anxious, Alert. Oriented X3. No acute distress. Head: Normal external exam. Normocephalic. Atraumatic. No Mena signs noted. No raccoon eyes noted Eyes: PERRLA. EOMI. Conjunctiva and sclera normal. Eyelids normal. ENT: TM's Normal. Pharynx normal. Uvula midline. Moist mucous membranes. No trismus noted. No drooling noted. No muffled voice noted. Neck: Normal inspection. Neck supple. FROM. No adenopathy. Thyroid Normal. No meningeal signs. No neck mass noted. CVS: Normal heart rate and rhythm. Heart sound normal. No murmurs noted. Pulses normal throughout. Respiratory: No respiratory distress. Painless inspiration. Breath sounds normal. Diffuse expiratory wheezing with prolonged expiration, No accessory muscle usage noted or decreased air movement noted. Abdomen: Soft and nontender. Bowel sounds normal in all 4 quadrants. No distention noted. No organomegaly noted. No visible injury noted. Back: No CVA tenderness. Full range of motion noted. Skin: Skin warm and dry. Normal skin color. Normal skin turgor. No rashes/lesions/lacerations noted. Extremities: No lower extremity edema. Extremities exhibit normal range of motion. Extremities nontender. Neuro: Oriented X 3. Cranial nerve exam: II-XII are grossly intact No motor deficit. No sensory deficit. Reflexes normal. Course Reevaluation(s) Reevaluation #1: 43-year-old female came in for evaluation of generalized body ache and viral syndrome found to be positive for COVID, patient feels better with IV fluids, Toradol, and Tylenol. Was instructed to self quarantine, keep social distancing, wear the mask at all times, frequent hand washing. Time: 13:23 Medications Administered Generic Name Dose Route Start Last Admin Trade Name Freq PRN Reason Stop Dose Admin Sodium Chloride 1,000 mls @ 999 mls/hr 01/19/24 13:21 01/19/24 13:25 Ns IV 01/19/24 14:21 999 mls/hr .Q1H1M ONE Administration Discontinued Medications Generic Name Dose Route Start Last Admin Trade Name Freq PRN Reason Stop Dose Admin Acetaminophen 650 mg 01/19/24 13:26 01/19/24 13:31 Acetaminophen 325 Mg Tablet PO 01/19/24 13:27 650 mg ONCE ONE Administration Sodium Chloride 1,000 mls @ 999 mls/hr 01/19/24 11:40 01/19/24 13:20 Ns IV 01/19/24 12:40 Infused .Q1H1M ONE Infusion Ketorolac Tromethamine 30 mg 01/19/24 11:40 01/19/24 12:16 Ketorolac Tromethamine 30 Mg/Ml Vial IVPUSH 01/19/24 11:41 30 mg ONCE ONE Administration Methylprednisolone Sodium Succinate 125 mg 01/19/24 13:21 01/19/24 13:32 Methylprednisolone Sod Succ 125 Mg/2 Ml Vial IVPUSH 01/19/24 13:22 125 mg ONCE ONE Administration Medical Decision Making Differential Diagnosis Differential Diagnoses: The differential diagnosis associated with the presentation includes (RSV, influenza, COVID-19 infection, strep pharyngitis, severe dehydration, electrolyte derangement, severe anemia, bronchitis.) Admission/Observation Consideration of admission/observation: Escalation of care including admission/observation considered Lab Data MDM Lab Attestation statement: I reviewed the patient's lab results. 01/19/24 12:10 01/19/24 12:10 Labs: Lab Results 01/19/24 01/19/24 Range/Units 12:09 12:10 WBC 10.5 (4.8-10.8) X10*3/uL RBC 4.14 L (4.20-5.50) X10*6/uL Hgb 11.7 L (12.0-16.0) g/dl Hct 34.5 L (37.0-47.0) % MCV 83.3 (80.0-98.0) fL MCH 28.3 (27.0-33.0) pg MCHC 33.9 (31.0-35.0) g/dl RDW 15.8 (11.0-16.0) % Plt Count 284 (160-400) X10*3/uL MPV 10.1 (9.4-12.3) fL Immature Gran % (Auto) 0.5 H (0.0-0.4) % Neut % (Auto) 81.6 H (45-73) % Lymph % (Auto) 8.1 L (20-40) % [place] % (Auto) 8.6 (2-11) % Eos % (Auto) 0.8 (0-4) % Baso % (Auto) 0.4 (0-2) % Lymph # (Auto) 0.9 L (1.2-4.9) X10*3/uL [place] # (Auto) 0.9 (0.1-1.2) X10*3/uL Eos # (Auto) 0.1 (0.0-0.4) X10*3/uL Baso # (Auto) 0.0 (0.0-0.2) X10*3/uL Abs Immat Gran (auto) 0.05 H (0.00-0.03) X10*3/uL Absolute Neuts (auto) 8.6 H (2.0-8.3) x10*3/uL Absolute Nucleated RBC 0.000 (0.0-0.012) X10*3/uL Nucleated RBC % (auto) 0.0 (0.0-0.2) /100WBC Sodium 136 (135-145) mmol/L Potassium 4.1 (3.3-5.1) mmol/L Chloride 105 (96-108) mmol/L Carbon Dioxide 21 L (22-29) mmol/L Anion Gap 14 (12-20) BUN 7 L (9-16) mg/dL Creatinine 0.84 (0.5-1.4) mg/dL Estim Creat Clear Calc 101.0 Estimated GFR > 60 Random Glucose 91 (60-115) mg/dL Lactic Acid 1.7 (0.5-2.0) mmol/L Calcium 9.2 (8.4-10.2) mg/dL Total Bilirubin 0.6 (0.0-1.0) mg/dL Direct Bilirubin 0.2 (0.0-0.5) mg/dL AST 26 (5-31) U/L ALT 11 (0-31) U/L Alkaline Phosphatase 82 (39-117) U/L Troponin I High Sens 8.4 (<3.5-17.0) ng/L B-Natriuretic Peptide 25 (<100) pg/mL Total Protein 9.2 H (6.5-8.0) g/dL Albumin 4.0 (3.5-5.0) g/dL Lipase 14 (8-78) U/L Influenza Type A (PCR) NEGATIVE (Negative) Influenza Type B (PCR) NEGATIVE (Negative) RSV RNA Qual (PCR) NEGATIVE (Negative) SARS-CoV-2 RNA (RT-PCR) POSITIVE A (Negative) S. pyogenes GrpA DORA Negative (Negative) Independent Interpretation I performed an independent interpretation of an: Plain X-Ray (Chest:Stable appearance of the heart and lungs. No active disease. ) Radiology Impression Discussion of test interpretation with radiology: I have reviewed the radiologist's reading. Discharge Plan Discharge Clinical Impression: COVID-19 Patient Disposition: Home, Self-Care Instructions: COVID-19 (Coronavirus Disease 2019) (ED) Additional Instructions: Self quarantine for 7 days, keep social distancing, wear face mask at all times, frequent hands wash. Prescriptions: New albuterol sulfate 90 mcg/actuation HFA aerosol inhaler 2 puff inhalation Q6H PRN (Reason: shortness of breath or wheezing) Qty: 8.5 0RF No Action azithromycin 250 mg tablet See Rx Instructions .ROUTE .COMPLEX Qty: 6 0RF Rx Instructions: take 500 mg today (day 1), then 250 mg for 4 days (days 2-5) benzonatate [Tessalon Perles] 100 mg capsule 100 mg PO TID PRN (Reason: cough) Qty: 10 0RF lorazepam [Ativan] 0.5 mg tablet 0.5 mg PO BEDTIME PRN (Reason: anxiety/ sleep) Qty: 14 0RF doxycycline hyclate 100 mg capsule 100 mg PO BID Qty: 20 0RF Print Language: Maori
[2024-01-19] MEDS: 0.9 % Sodium Chloride 1,000 ML 999 ML IV ×2 (12:14→13:25)
[2024-01-19 12:16] LABS: MANUAL DIFF FLAG NO
[2024-01-19] MEDS: Ketorolac Tromethamine 30 MG/ML VIAL IVPUSH ×2 (12:16→14:44)
[2024-01-19 12:18] LABS: Basophils Percent Auto 0.4 % (0-2); Eosinophils Absolute Auto 0.1 X10*3/uL (0.0-0.4); Eosinophils Percent Auto 0.8 % (0-4); Hematocrit 34.5 % (37.0-47.0); Hemoglobin 11.7 g/dl (12.0-16.0); Imm Gran Abs Auto 0.05 X10*3/uL (0.00-0.03); Imm Gran Pct Auto 0.5 % (0.0-0.4); Lymphocytes Absolute Auto 0.9 X10*3/uL (1.2-4.9); Lymphocytes Percent Auto 8.1 % (20-40); Mean Corpuscular HGB Conc 33.9 g/dl (31.0-35.0); Mean Corpuscular Hemoglobin 28.3 pg (27.0-33.0); Mean Corpuscular Volume 83.3 fL (80.0-98.0); Mean Platelet Volume 10.1 fL (9.4-12.3); Monocytes Absolute Auto 0.9 X10*3/uL (0.1-1.2); Monocytes Percent Auto 8.6 % (2-11); Neutrophils Absolute Auto 8.6 x10*3/uL (2.0-8.3); Neutrophils Percent Auto 81.6 % (45-73); Platelet Count 284 X10*3/uL (160-400); Red Blood Count 4.14 X10*6/uL (4.20-5.50); Red Cell Distribution Width 15.8 % (11.0-16.0); White Blood Count 10.5 X10*3/uL (4.8-10.8)
[2024-01-19 12:26] LABS: IDNOW Serial# 08D9AD1C; Strep A Nucleic Acid Negative (Negative)
[2024-01-19 12:29] LABS: Lactic Acid 1.7 mmol/L (0.5-2.0)
[2024-01-19 12:36] LABS: Alanine Aminotransferase 11 U/L (0-31); Alkaline Phosphatase 82 U/L (39-117); Anion Gap 14 (12-20); Aspartate Amino Transferase 26 U/L (5-31); Bilirubin Direct 0.2 mg/dL (0.0-0.5); Bilirubin Total 0.6 mg/dL (0.0-1.0); Blood Urea Nitrogen 7 mg/dL (9-16); Calcium 9.2 mg/dL (8.4-10.2); Carbon Dioxide 21 mmol/L (22-29); Chloride 105 mmol/L (96-108); Estimated Glomerular Filt Rate > 60; Glucose Random 91 mg/dL (60-115); Lipase 14 U/L (8-78); Potassium 4.1 mmol/L (3.3-5.1); Sodium 136 mmol/L (135-145); Total Protein 9.2 g/dL (6.5-8.0)
[2024-01-19 12:39] VITALS: BP 140/78; PULSE 102; RESP 17; O2SAT 96
[2024-01-19 12:39] LABS: B Type Natriuretic Peptide 25 pg/mL (<100)
[2024-01-19 12:41] LABS: Troponin-I High Sensitivity 8.4 ng/L (<3.5-17.0)
[2024-01-19 12:59] LABS: Influenza A PCR NEGATIVE (Negative); Influenza B PCR NEGATIVE (Negative); Resp Syncy Virus RNA Qual PCR NEGATIVE (Negative); SARS COV2 PCR INHOUSE POSITIVE (Negative)
[2024-01-19] MEDS: Acetaminophen 325 MG TABLET 650 MG PO (13:31)
[2024-01-19] MEDS: methylPREDNISolone Sod Succ 125 MG/2 ML VIAL IVPUSH (13:32)
[2024-01-19 14:23] VITALS: BP 147/76; PULSE 100; RESP 16; TEMP 37.3; O2SAT 97
[2024-01-19 14:37] LABS: Appearance Urine Clear; Color Urine Yellow; Glucose Urine UA Negative (Negative); Leukocyte Esterase Urine Negative (Negative); Nitrite Urine Negative (Negative); PH 6.5 (5.0-9.0); Specific Gravity - Urine 1.015 (1.005-1.025); UMIC TRIGGER UACC YES; Urine Blood Small (1+) (Negative); Urine Ketones 40 mg/dL (Negative); Urine Protein Negative (Neg-Trace)
[2024-01-19 14:40] LABS: Bacteria Urine None Seen (None Seen); Hyaline Casts Urine 0-2 /LPF (0-2); Squamous Epithelial Cell Urine 0-2 /HPF (0-2); UPreg QC Valid YES; Urine Pregnancy NEGATIVE (NEGATIVE); WBC Urine 0-5 /HPF (0-5)
[2024-01-19 15:00] VITALS: BP 147/76; PULSE 100; RESP 16; TEMP 37.3; O2SAT 97
== END 2024-01-19 15:01 | disposition home or self-care (01) ==
PROVIDERS: Emergency Provider Emergency Medicine
DX: U07.1 COVID-19 (principal); R11.2 Nausea with vomiting, unspecified; M79.10 Myalgia, unspecified site; R00.0 Tachycardia, unspecified; R09.89 Other specified symptoms and signs involving the circulatory and respiratory systems; R06.02 Shortness of breath; Z79.899 Other long term (current) drug therapy
CPT/HCPCS: 0241U; 36415; 71045; 80048; 80076; 81001; 81025; 83605; 83690; 83880; 84484; 85025; 87040; 87651; 93005; 96361; 96374; 96375; 96376; 99284; 99285; J1885; J2919

== ENCOUNTER → 2024-01-19 10:43 | Outpatient (BNV) | payer OTHER, SELFPAY | PROVIDERS: Emergency Provider Emergency Medicine; Visit Provider Internal Medicine Cardiovascular Disease | DX: R00.0 Tachycardia, unspecified (principal); R11.2 Nausea with vomiting, unspecified | CPT/HCPCS: 93010 ==

== ENCOUNTER 2024-05-11 18:49 | Emergency (ER) | payer OTHER, SELFPAY ==
[2024-05-11 19:34] VITALS: BP 161/83; PULSE 75; RESP 18; TEMP 36.7; O2SAT 95
--- NOTE | 2024-05-11 19:34 | ED_ITS ---
HPI - Dental/Oral General Chief complaint: General Medical Stated complaint: dental pain Time Seen by Provider: 05/11/24 23:11 History of Present Illness ED Provider: Telly SERNA Narrative: The patient is a 43-year-old woman who presents with pain on the right side of her face radiating down the right jaw that has been bothering her for 3 days. She says that she has several very bad teeth and has a lot of pain in the teeth on the right side of her face, both on the maxilla and the mandible. She has not had a fever. Related Data Previous Rx's ?Medication ?Instructions ?Recorded azithromycin 250 mg tablet See Rx Instructions PO .COMPLEX #6 09/28/20 tabs benzonatate 100 mg capsule 100 mg PO TID PRN cough #10 caps 09/28/20 (Tessalon Melisa) doxycycline hyclate 100 mg capsule 100 mg PO BID #20 caps 12/21/22 lorazepam 0.5 mg tablet (Ativan) 0.5 mg PO BEDTIME PRN anxiety/ 01/07/23 sleep #14 tabs albuterol sulfate 90 mcg/actuation 2 puff inhalation Q6H PRN 01/19/24 aerosol inhaler shortness of breath or wheezing #8.5 grams amoxicillin 875 mg-potassium 1 tab PO BID #20 tabs 05/11/24 clavulanate 125 mg tablet ibuprofen 600 mg tablet 600 mg PO Q6H PRN pain #14 tabs 05/11/24 Allergies Allergy/AdvReac Type Severity Reaction Status Date / Time iodine [IODINE] Allergy Unknown DIFFICULTY Verified 05/11/24 19:38 BREATHING Review of Systems 2 Review of Systems: Yes all other systems are reviewed and are negative [facility] Past Medical History Medical History Graves disease Social History Social History Advance Directives: No Advance Directives Information Provided: No Physical Exam 2 Vital Signs: Vital Signs: Last Vital Signs Temp 97.7 F 05/11/24 23:44 Pulse 71 05/11/24 23:44 Resp 16 05/11/24 23:44 BP 149/80 H 05/11/24 23:44 Pulse Ox 96 05/11/24 23:44 O2 Del Method Room Air 05/11/24 23:44 BMI result Body Mass Index 30.0 Const: Other: The patient is awake and alert, pleasant and cooperative. She seems mildly uncomfortable but not toxic HEENT: Other: No gross facial asymmetry. No gross soft tissue swelling the face on either side. The patient has severely carious teeth of both the mandibular teeth on the right and the maxillary teeth. No gingival swelling or abscess. No trismus. Posterior pharynx is normal. She has diffuse dental tenderness on the right, both the upper and lower teeth. Eyes: Other: Pupils are round equal, conjunctivae are clear, extraocular movements are intact. Neck: Other: Patient has a lot of tenderness with palpation of the right side of the neck but I do not appreciate any definite adenopathy or any other palpable abnormality or swelling. She seems to be moving her neck easily with a full range of motion. Resp: Effort & Inspection: normal respiratory effort Auscultation: clear to auscultation bilaterally Cardio: Rate: regular rate Rhythm: regular rhythm Heart sounds: S1 normal heart sound present and S2 normal heart sound present Skin: Other: The skin of the face in the neck are unremarkable. No erythema or other changes. Neuro: Other: The patient is awake and alert with a normal mental status. Cranial nerves are intact. She moves her extremities normally and has a normal gait. Extrem: Other: No peripheral edema. Course Course Course Narrative: This is a Rapid Medical Exam performed in triage by Marce Harvey PA-C. Full HPI, ROS and PE to be performed by primary ED provider. 43 year-old F w/ PMHx Graves dz presenting to the ED c/o right sided dental/facial pain x3 days & right sided neck pain/swelling. denies recent dental procedures. is noncompliant with her thyroid medication. denies fever PE: +R neck swelling appreciated. poor dentition without fluctuance or induration. Talking complete sentences. Mild posterior oropharyngeal erythema, no [employer] Plan: Labs, rapid strep Medications Administered Discontinued Medications Generic Name Dose Route Start Last Admin Trade Name Freq PRN Reason Stop Dose Admin Acetaminophen 975 mg 05/11/24 23:24 05/11/24 23:37 Acetaminophen 325 Mg Tablet PO 05/11/24 23:25 975 mg ONCE ONE Administration Amoxicillin/Clavulanate Potassium 875 mg 05/11/24 23:24 05/11/24 23:38 Amoxicillin/Potassium Clav 875 Mg Tablet PO 05/11/24 23:25 875 mg ONCE ONE Administration Ketorolac Tromethamine 30 mg 05/11/24 23:24 05/11/24 23:38 Ketorolac Tromethamine 30 Mg/Ml Vial IM 05/11/24 23:25 30 mg ONCE ONE Administration Medical Decision Making Medical Decision Making [facility] Narrative: The patient presents with a great deal of pain in the right side of her face and the right side of her neck. She is mildly hypertensive but vital signs were otherwise unremarkable. She is not febrile or tachycardic. The patient believes her pain is coming from her carious teeth on the right side and I suspect she is correct. I do not appreciate any evidence of any deep space infections in the neck or the airway. Think it would be reasonable to place her on antibiotics and have her follow up with her dentist. She was started on Augmentin. Lab Data 05/11/24 19:49 05/11/24 19:49 Labs: Lab Results 05/11/24 Range/Units 19:49 WBC 11.4 H (4.8-10.8) X10*3/uL RBC 3.79 L (4.20-5.50) X10*6/uL Hgb 10.7 L (12.0-16.0) g/dl Hct 32.3 L (37.0-47.0) % MCV 85.2 (80.0-98.0) fL MCH 28.2 (27.0-33.0) pg MCHC 33.1 (31.0-35.0) g/dl RDW 16.3 H (11.0-16.0) % Plt Count 352 (160-400) X10*3/uL MPV 9.6 (9.4-12.3) fL Immature Gran % (Auto) 0.3 (0.0-0.4) % Neut % (Auto) 57.0 (45-73) % Lymph % (Auto) 33.5 (20-40) % [place] % (Auto) 7.2 (2-11) % Eos % (Auto) 1.6 (0-4) % Baso % (Auto) 0.4 (0-2) % Lymph # (Auto) 3.8 (1.2-4.9) X10*3/uL [place] # (Auto) 0.8 (0.1-1.2) X10*3/uL Eos # (Auto) 0.2 (0.0-0.4) X10*3/uL Baso # (Auto) 0.0 (0.0-0.2) X10*3/uL Abs Immat Gran (auto) 0.03 (0.00-0.03) X10*3/uL Absolute Neuts (auto) 6.5 (2.0-8.3) x10*3/uL Absolute Nucleated RBC 0.000 (0.0-0.012) X10*3/uL Nucleated RBC % (auto) 0.0 (0.0-0.2) /100WBC Sodium 143 (135-145) mmol/L Potassium 3.7 (3.3-5.1) mmol/L Chloride 108 (96-108) mmol/L Carbon Dioxide 25 (22-29) mmol/L Anion Gap 14 (12-20) BUN 11 (9-16) mg/dL Creatinine 0.86 (0.5-1.4) mg/dL Estim Creat Clear Calc 93.2 Estimated GFR > 60 Random Glucose 110 (60-115) mg/dL Calcium 9.0 (8.4-10.2) mg/dL Total Bilirubin 0.1 (0.0-1.0) mg/dL Direct Bilirubin < 0.2 (0.0-0.5) mg/dL AST 11 (5-31) U/L ALT 9 (0-31) U/L Alkaline Phosphatase 75 (39-117) U/L Total Protein 7.3 (6.5-8.0) g/dL Albumin 3.5 (3.5-5.0) g/dL TSH 0.58 (0.32-4.0) uIU/mL S. pyogenes GrpA DORA Negative (Negative) Discharge Plan Discharge Clinical Impression: Pain due to dental caries Patient Disposition: Home, Self-Care Additional Instructions: You have been started on an antibiotic, amoxicillin/clavulanate (often known as Augmentin). Please take this antibiotic 2 times a day, approximately every 12 hours. A prescription for ibuprofen has been sent to your pharmacy as well. You may use this as needed for pain. You may also take acetaminophen (Tylenol). Please contact your dentist on Tuesday for further care. Warm saltwater rinses may be helpful as well. Return to the emergency room if significantly worse. Prescriptions: New amoxicillin-pot clavulanate 875-125 mg tablet 1 tab PO BID Qty: 20 0RF ibuprofen 600 mg tablet 600 mg PO Q6H PRN (Reason: pain) Qty: 14 0RF No Action azithromycin 250 mg tablet See Rx Instructions .ROUTE .COMPLEX Qty: 6 0RF Rx Instructions: take 500 mg today (day 1), then 250 mg for 4 days (days 2-5) benzonatate [Tessalon Perles] 100 mg capsule 100 mg PO TID PRN (Reason: cough) Qty: 10 0RF lorazepam [Ativan] 0.5 mg tablet 0.5 mg PO BEDTIME PRN (Reason: anxiety/ sleep) Qty: 14 0RF albuterol sulfate 90 mcg/actuation HFA aerosol inhaler 2 puff inhalation Q6H PRN (Reason: shortness of breath or wheezing) Qty: 8.5 0RF doxycycline hyclate 100 mg capsule 100 mg PO BID Qty: 20 0RF Interventions: ED Discharge Assessment Last Done: 05/11/24 23:44 Discharge Date/Time: 05/11/24 23:44 Print Language: Arabic
[2024-05-11 19:54] LABS: MANUAL DIFF FLAG NO
[2024-05-11 19:58] LABS: Basophils Percent Auto 0.4 % (0-2); Eosinophils Absolute Auto 0.2 X10*3/uL (0.0-0.4); Eosinophils Percent Auto 1.6 % (0-4); Hematocrit 32.3 % (37.0-47.0); Hemoglobin 10.7 g/dl (12.0-16.0); Imm Gran Abs Auto 0.03 X10*3/uL (0.00-0.03); Imm Gran Pct Auto 0.3 % (0.0-0.4); Lymphocytes Absolute Auto 3.8 X10*3/uL (1.2-4.9); Lymphocytes Percent Auto 33.5 % (20-40); Mean Corpuscular HGB Conc 33.1 g/dl (31.0-35.0); Mean Corpuscular Hemoglobin 28.2 pg (27.0-33.0); Mean Corpuscular Volume 85.2 fL (80.0-98.0); Mean Platelet Volume 9.6 fL (9.4-12.3); Monocytes Absolute Auto 0.8 X10*3/uL (0.1-1.2); Monocytes Percent Auto 7.2 % (2-11); Neutrophils Absolute Auto 6.5 x10*3/uL (2.0-8.3); Platelet Count 352 X10*3/uL (160-400); Red Blood Count 3.79 X10*6/uL (4.20-5.50); Red Cell Distribution Width 16.3 % (11.0-16.0); White Blood Count 11.4 X10*3/uL (4.8-10.8)
[2024-05-11 20:07] LABS: IDNOW Serial# 08D9AD1C; Strep A Nucleic Acid Negative (Negative)
[2024-05-11 20:21] LABS: Alanine Aminotransferase 9 U/L (0-31); Albumin Level 3.5 g/dL (3.5-5.0); Alkaline Phosphatase 75 U/L (39-117); Anion Gap 14 (12-20); Aspartate Amino Transferase 11 U/L (5-31); Bilirubin Direct < 0.2 mg/dL (0.0-0.5); Bilirubin Total 0.1 mg/dL (0.0-1.0); Blood Urea Nitrogen 11 mg/dL (9-16); Carbon Dioxide 25 mmol/L (22-29); Chloride 108 mmol/L (96-108); Creatinine Clr Calc Pharmacy 93.2; Estimated Glomerular Filt Rate > 60; Glucose Random 110 mg/dL (60-115); Potassium 3.7 mmol/L (3.3-5.1); Sodium 143 mmol/L (135-145); Total Protein 7.3 g/dL (6.5-8.0)
[2024-05-11 20:30] VITALS: BP 136/96; PULSE 85; RESP 16; TEMP 36.8; O2SAT 98
[2024-05-11 20:30] LABS: TSH reflex Free T4 0.58 uIU/mL (0.32-4.0)
[2024-05-11 22:16] VITALS: BP 149/80; PULSE 71; RESP 16; TEMP 36.5; O2SAT 96
[2024-05-11] MEDS: Acetaminophen 325 MG TABLET 975 MG PO (23:37)
[2024-05-11] MEDS: Amoxicillin/Potassium Clav 875 MG TABLET PO (23:38)
[2024-05-11] MEDS: Ketorolac Tromethamine 30 MG/ML VIAL IM (23:38)
[2024-05-11 23:44] VITALS: BP 149/80; PULSE 71; RESP 16; TEMP 36.5; O2SAT 96
== END 2024-05-11 23:44 | disposition home or self-care (01) ==
PROVIDERS: Physician Assistant; Emergency Provider Emergency Medicine
DX: K02.9 Dental caries, unspecified (principal); K08.89 Other specified disorders of teeth and supporting structures
CPT/HCPCS: 80048; 80076; 84443; 85025; 87651; 96372; 99283; 99284; J1885

== ENCOUNTER 2024-09-27 15:56 | Emergency (ER) | payer OTHER, SELFPAY ==
--- NOTE | ~2024-09-27 | XR_ITS ---
EXAMINATION: XR CHEST CLINICAL INFORMATION: Coughing. Pneumonia? COMPARISON: None available. TECHNIQUE: Frontal view of the chest was obtained. FINDINGS: No significant abnormality is noted involving the heart, lungs, mediastinum, bony thorax or soft tissues. XR/XR chest 1V IMPRESSION: Unremarkable chest examination. Electronically signed by: Dalton Kline MD 09/27/2024 04:39 PM [facility]
[2024-09-27 15:58] VITALS: BP 141/98; PULSE 133; RESP 19; TEMP 38.1; O2SAT 98; BMI 32.3
--- NOTE | 2024-09-27 16:02 | ED.GENADULT ---
HPI - General Adult General Chief complaint: Upper Respiratory Symptoms Stated complaint: sob,vomiting Time Seen by Provider: 09/27/24 18:16 History of Present Illness HPI narrative: Patient complains of body aches fever headache cough, pain in chest only with coughing, nausea and vomiting for 3-4 days, feeling fatigued Negatives are no stiff neck, no sore throat, no shortness of breath, no abdominal pain, no diarrhea no dysuria no rash Patient says she is vomiting everything even water prior to arrival, but was given Zofran in triage and is no longer nauseous and has been drinking here in the ER Related Data Previous Rx's ?Medication ?Instructions ?Recorded azithromycin 250 mg tablet See Rx Instructions PO .COMPLEX #6 09/28/20 tabs benzonatate 100 mg capsule 100 mg PO TID PRN cough #10 caps 09/28/20 (Reji Vincent) doxycycline hyclate 100 mg capsule 100 mg PO BID #20 caps 12/21/22 lorazepam 0.5 mg tablet (Ativan) 0.5 mg PO BEDTIME PRN anxiety/ 01/07/23 sleep #14 tabs albuterol sulfate 90 mcg/actuation 2 puff inhalation Q6H PRN 01/19/24 aerosol inhaler shortness of breath or wheezing #8.5 grams amoxicillin 875 mg-potassium 1 tab PO BID #20 tabs 05/11/24 clavulanate 125 mg tablet ibuprofen 600 mg tablet 600 mg PO Q6H PRN pain #14 tabs 05/11/24 acetaminophen 500 mg tablet 1,000 mg (2 x 500 mg) PO QID PRN 09/27/24 pain #30 tabs ibuprofen 600 mg tablet 600 mg PO Q6H PRN fever or pain 09/27/24 #20 tabs ondansetron 4 mg disintegrating 4 mg PO Q6H PRN nausea and 09/27/24 tablet vomiting #14 tabs oseltamivir 75 mg capsule (Tamiflu) 75 mg PO BID 5 days #10 caps 09/27/24 oxycodone 5 mg tablet 5 mg PO Q6H PRN pain #14 tabs 09/27/24 Allergies Allergy/AdvReac Type Severity Reaction Status Date / Time iodine [IODINE] Allergy Unknown DIFFICULTY Verified 09/27/24 16:01 BREATHING PMFSH Past Medical History Source: nursing notes reviewed Medical History Graves disease Social History Social History Advance Directives: No Advance Directives Information Provided: No Do you have a plan to hurt others: No Plan Physical Exam ED Vital Signs: Vital Signs - 24 hr 09/27/24 15:58 09/27/24 19:01 09/27/24 19:20 Temperature 100.6 F H 99.3 F 98.2 F Pulse Rate 133 H 114 H 108 H Respiratory Rate 19 20 18 Blood Pressure 141/98 H 139/91 H 146/109 H Pulse Oximetry 98 93 95 Oxygen Delivery Method Room Air Room Air Room Air 09/27/24 20:50 09/27/24 21:04 Temperature 98.9 F 98.9 F Pulse Rate 88 88 Respiratory Rate 16 16 Blood Pressure 152/89 H 152/89 H Pulse Oximetry 96 96 Oxygen Delivery Method Room Air Room Air BMI result Body Mass Index 32.3 General appearance no acute distress no respiratory distress speaking full sentences, but uncomfortable The eyes no redness or discharge The ears are clear with normal tympanic membrane and canal bilateral Sinuses nontender Pharynx mucous membranes are moist, no redness swelling or exudate, voice is normal no drooling no trismus The neck is supple Respiratory no distress Chest is clear to auscultation bilateral with normal full symmetric breath sounds no adventitious sounds Heart no murmur auscultated Abdomen soft nontender Extremities wrote range of motion x4 Skin no rash Neuro no focal motor or sensory deficits Course Course Course Narrative: RME: 44-year-old female presents to ED for body aches, coughing, shortness of breath subjective fever, and chills. Patient is febrile and tacky. Patient coughing. Tylenol Motrin Zofran SARs strep chest x-ray ordered. Patient with vomiting, positive for flu, fever Fever was controlled with Tylenol and Motrin given in triage, vomiting and nausea were controlled with oxycodone I did not start Tamiflu here at now as she is just recovering from nausea and Tamiflu can cause nausea and vomiting, and she is over the 48 hour window as well She is discharged tolerating p.o., fever controlled and feeling improved Medications Administered Discontinued Medications Generic Name Dose Route Start Last Admin Trade Name Freq PRN Reason Stop Dose Admin Acetaminophen 975 mg 09/27/24 16:01 09/27/24 18:07 Acetaminophen 325 Mg Tablet PO 09/27/24 16:02 975 mg ONCE ONE Administration Acetaminophen 650 mg 09/27/24 20:36 09/27/24 20:47 Acetaminophen 325 Mg Tablet PO 09/27/24 20:37 650 mg ONCE ONE Administration Ibuprofen 800 mg 09/27/24 16:01 09/27/24 18:08 Ibuprofen 800 Mg Tablet PO 09/27/24 16:02 800 mg ONCE ONE Administration Ketorolac Tromethamine 30 mg 09/27/24 20:36 09/27/24 20:44 Ketorolac Tromethamine 30 Mg/Ml Vial IM 09/27/24 20:37 30 mg ONCE ONE Administration Ondansetron HCl 8 mg 09/27/24 16:01 09/27/24 16:05 Ondansetron Odt 8 Mg Tab.Rapdis TRANSLINGU 09/27/24 16:02 8 mg ONCE ONE Administration Oxycodone HCl 5 mg 09/27/24 20:36 09/27/24 20:47 Oxycodone Hcl Immed Release 5 Mg Tablet PO 09/27/24 20:37 5 mg ONCE ONE Administration Medical Decision Making Lab Data Labs: Lab Results 09/27/24 Range/Units 18:19 Influenza Type A (PCR) POSITIVE A (Negative) Influenza Type B (PCR) NEGATIVE (Negative) RSV RNA Qual (PCR) NEGATIVE (Negative) SARS-CoV-2 RNA (RT-PCR) NEGATIVE (Negative) S. pyogenes GrpA DORA Negative (Negative) Discharge Plan Discharge Clinical Impression: Influenza Patient Disposition: Home, Self-Care Additional Instructions: You tested positive for flu which commonly causes your symptoms of body aches fever and nausea You have prescriptions for Zofran for nausea, which worked very well here in the ER Tylenol and Motrin for body aches or fever Oxycodone for breakthrough pain if needed Stay well hydrated so drink plenty of fluids Tamiflu is a medication that helps shorten the course of illness by 1 day, but sometimes has the side effect of causing vomiting or diarrhea and because you have been vomiting we did not start Tamiflu here, you are welcome to start it tomorrow if you want Return any time any worse condition or any concerns Prescriptions: New oseltamivir [Tamiflu] 75 mg capsule 75 mg PO BID 5 Days Qty: 10 0RF acetaminophen 500 mg tablet 1,000 mg PO QID PRN (Reason: pain) Qty: 30 0RF ibuprofen 600 mg tablet 600 mg PO Q6H PRN (Reason: fever or pain) Qty: 20 0RF ondansetron 4 mg tablet,disintegrating 4 mg PO Q6H PRN (Reason: nausea and vomiting) Qty: 14 0RF oxycodone 5 mg tablet 5 mg PO Q6H PRN (Reason: pain) Qty: 14 0RF Rx Instructions: Partial Fill upon patient request. No Action azithromycin 250 mg tablet See Rx Instructions .ROUTE .COMPLEX Qty: 6 0RF Rx Instructions: take 500 mg today (day 1), then 250 mg for 4 days (days 2-5) benzonatate [Tessalon Perles] 100 mg capsule 100 mg PO TID PRN (Reason: cough) Qty: 10 0RF lorazepam [Ativan] 0.5 mg tablet 0.5 mg PO BEDTIME PRN (Reason: anxiety/ sleep) Qty: 14 0RF albuterol sulfate 90 mcg/actuation HFA aerosol inhaler 2 puff inhalation Q6H PRN (Reason: shortness of breath or wheezing) Qty: 8.5 0RF amoxicillin-pot clavulanate 875-125 mg tablet 1 tab PO BID Qty: 20 0RF ibuprofen 600 mg tablet 600 mg PO Q6H PRN (Reason: pain) Qty: 14 0RF doxycycline hyclate 100 mg capsule 100 mg PO BID Qty: 20 0RF Interventions: ED Discharge Assessment Last Done: 09/27/24 21:04 Discharge Date/Time: 09/27/24 21:09 Print Language: Occitan
[2024-09-27] MEDS: Ondansetron ODT 8 MG TAB.RAPDIS TRANSLINGU (16:05)
[2024-09-27] MEDS: Acetaminophen 325 MG TABLET 975 MG PO (18:07)
[2024-09-27] MEDS: Ibuprofen 800 MG TABLET PO (18:08)
--- NOTE | 2024-09-27 18:09 | ECG_ITS ---
Test Reason : CHST PAIN Blood Pressure : / mmHG Vent. Rate : 117 BPM Atrial Rate : 117 BPM P-R Int : 148 ms QRS Dur : 070 ms QT Int : 302 ms P-R-T Axes : 066 038 051 degrees QTc Int : 421 ms Sinus tachycardia Minimal voltage criteria for LVH, may be normal variant ( Sokolow-Marc ) Borderline ECG When compared with ECG of 19-JAN-2024 10:56, T wave inversion no longer evident in Anterior leads Referred By: Generic ED Physician Electronically Signed By:ANGELA DALTON MD
[2024-09-27 18:35] LABS: IDNOW Serial# 58CA691E; Strep A Nucleic Acid Negative (Negative)
[2024-09-27 19:01] VITALS: BP 139/91; PULSE 114; RESP 20; TEMP 37.4; O2SAT 93
[2024-09-27 19:02] LABS: Influenza A PCR POSITIVE (Negative); Influenza B PCR NEGATIVE (Negative); Resp Syncy Virus RNA Qual PCR NEGATIVE (Negative); SARS COV2 PCR INHOUSE NEGATIVE (Negative)
[2024-09-27 19:20] VITALS: BP 146/109; PULSE 108; RESP 18; TEMP 36.8; O2SAT 95
[2024-09-27] MEDS: Ketorolac Tromethamine 30 MG/ML VIAL IM (20:44)
[2024-09-27] MEDS: oxyCODONE HCl Immed Release 5 MG TABLET PO (20:47)
[2024-09-27] MEDS: Acetaminophen 325 MG TABLET 650 MG PO (20:47)
[2024-09-27 20:50] VITALS: BP 152/89; PULSE 88; RESP 16; TEMP 37.2; O2SAT 96
[2024-09-27 21:04] VITALS: BP 152/89; PULSE 88; RESP 16; TEMP 37.2; O2SAT 96
== END 2024-09-27 21:09 | disposition home or self-care (01) ==
PROVIDERS: Physician Assistant; Emergency Provider Emergency Medicine
DX: J10.1 Influenza due to other identified influenza virus with other respiratory manifestations (principal); R00.0 Tachycardia, unspecified; R06.02 Shortness of breath; R51.9 Headache, unspecified; R07.81 Pleurodynia; R11.2 Nausea with vomiting, unspecified; Z03.818 Encounter for observation for suspected exposure to other biological agents ruled out
CPT/HCPCS: 0241U; 71045; 87651; 93005; 96372; 99284; J1885

== ENCOUNTER → 2024-09-27 16:01 | Outpatient (BNV) | payer OTHER, SELFPAY | PROVIDERS: Visit Provider Radiology Diagnostic Radiology | DX: R05.9 Cough, unspecified (principal) | CPT/HCPCS: 71045 ==

== ENCOUNTER → 2024-09-27 18:09 | Outpatient (BNV) | payer OTHER, SELFPAY | PROVIDERS: Emergency Provider Emergency Medicine; Visit Provider Internal Medicine Cardiovascular Disease | DX: R07.9 Chest pain, unspecified (principal) | CPT/HCPCS: 93010 ==

== ENCOUNTER 2024-11-12 20:36 | Emergency (ER) | payer OTHER, SELFPAY ==
[2024-11-12 20:59] VITALS: BP 193/124; PULSE 99; RESP 18; TEMP 36.6; O2SAT 99; BMI 30.7
--- NOTE | 2024-11-12 21:03 | ED.GENADULT ---
HPI - General Adult General Chief complaint: Extremity Injury, Lower Stated complaint: left foot wound might be infected Related Data Previous Rx's ?Medication ?Instructions ?Recorded azithromycin 250 mg tablet See Rx Instructions PO .COMPLEX #6 09/28/20 tabs benzonatate 100 mg capsule 100 mg PO TID PRN cough #10 caps 09/28/20 (Lizabethyeseniakike Vincent) doxycycline hyclate 100 mg capsule 100 mg PO BID #20 caps 12/21/22 lorazepam 0.5 mg tablet (Ativan) 0.5 mg PO BEDTIME PRN anxiety/ 01/07/23 sleep #14 tabs albuterol sulfate 90 mcg/actuation 2 puff inhalation Q6H PRN 01/19/24 aerosol inhaler shortness of breath or wheezing #8.5 grams amoxicillin 875 mg-potassium 1 tab PO BID #20 tabs 05/11/24 clavulanate 125 mg tablet ibuprofen 600 mg tablet 600 mg PO Q6H PRN pain #14 tabs 05/11/24 acetaminophen 500 mg tablet 1,000 mg (2 x 500 mg) PO QID PRN 09/27/24 pain #30 tabs ibuprofen 600 mg tablet 600 mg PO Q6H PRN fever or pain 09/27/24 #20 tabs ondansetron 4 mg disintegrating 4 mg PO Q6H PRN nausea and 09/27/24 tablet vomiting #14 tabs oseltamivir 75 mg capsule (Tamiflu) 75 mg PO BID 5 days #10 caps 09/27/24 oxycodone 5 mg tablet 5 mg PO Q6H PRN pain #14 tabs 09/27/24 Allergies Allergy/AdvReac Type Severity Reaction Status Date / Time iodine [IODINE] Allergy Unknown DIFFICULTY Verified 11/12/24 21:04 BREATHING PMF Past Medical History Medical History Graves disease Social History Social History Advance Directives: No Advance Directives Information Provided: No Physical Exam ED Vital Signs: BMI result Body Mass Index 30.7 Course Course Course Narrative: This is an RME: Additional HPI, ROS, PE not included below will be deferred to primary provider. RME assessment and note performed by: Vidhi Garcia, PA-C This is a 44-year-old female, with no known medical problems, who presents emergency department with complaints of bilateral foot pain for the last several weeks. She states that her feet are cracking, and she is concerned that they are infected. Patient refuses to show me in triage. Plan: Labs, further ER evaluation needed. Reevaluation(s) Reevaluation #1: Patient left without completing treatment. Discharge Plan Discharge Clinical Impression: Bilateral foot pain Patient Disposition: Left W/O Completing Treatment Prescriptions: No Action azithromycin 250 mg tablet See Rx Instructions .ROUTE .COMPLEX Qty: 6 0RF Rx Instructions: take 500 mg today (day 1), then 250 mg for 4 days (days 2-5) benzonatate [Tessalon Perles] 100 mg capsule 100 mg PO TID PRN (Reason: cough) Qty: 10 0RF lorazepam [Ativan] 0.5 mg tablet 0.5 mg PO BEDTIME PRN (Reason: anxiety/ sleep) Qty: 14 0RF albuterol sulfate 90 mcg/actuation HFA aerosol inhaler 2 puff inhalation Q6H PRN (Reason: shortness of breath or wheezing) Qty: 8.5 0RF amoxicillin-pot clavulanate 875-125 mg tablet 1 tab PO BID Qty: 20 0RF ibuprofen 600 mg tablet 600 mg PO Q6H PRN (Reason: pain) Qty: 14 0RF oseltamivir [Tamiflu] 75 mg capsule 75 mg PO BID 5 Days Qty: 10 0RF acetaminophen 500 mg tablet 1,000 mg PO QID PRN (Reason: pain) Qty: 30 0RF ibuprofen 600 mg tablet 600 mg PO Q6H PRN (Reason: fever or pain) Qty: 20 0RF ondansetron 4 mg tablet,disintegrating 4 mg PO Q6H PRN (Reason: nausea and vomiting) Qty: 14 0RF oxycodone 5 mg tablet 5 mg PO Q6H PRN (Reason: pain) Qty: 14 0RF Rx Instructions: Partial Fill upon patient request. doxycycline hyclate 100 mg capsule 100 mg PO BID Qty: 20 0RF Discharge Date/Time: 11/12/24 22:30
== END 2024-11-12 22:30 | disposition left against medical advice (07) ==
PROVIDERS: Emergency Provider Emergency Medicine
DX: M79.671 Pain in right foot (principal); M79.672 Pain in left foot
CPT/HCPCS: 99281; 99283